=== PATIENT | female | born 1940 | race Caucasian/White ===

== ENCOUNTER 2019-06-10 09:49 | Emergency (ER) | payer OTHER, MEDICARE ==
--- OUTSIDE RECORDS SUMMARY | 2019-06-10 09:52 | XMS REPORT ---
:1940 Author Organization [facility] Address [address] [place] [id number] Care Team Providers Name Role Phone Unavailable Unavailable Unavailable Problems This patient has no known problems. Allergies, Adverse Reactions, Alerts This patient has no known allergies or adverse reactions. Medications This patient has no known medications. Encounters Start End Encounter Admission Attending Care Care Encounter Date/Time Date/Time Type Type Clinicians Facility Department ID 2019-01-30 2019-01-30 Outpatient [facility] [id number] 09:30:00 09:30:00
[2019-06-10] MEDS ORDERED: METHYLPREDNISOLONE 125 MG INJ ONE (10:31)
--- NOTE | 2019-06-10 10:34 | ER ---
Nurse's Notes [facility] Name: Mariama Wayne Age: 79 yrs Sex: Female : 1940 Arrival Date: 06/10/2019 Time: 10:01 Bed 18 Private MD: Diagnosis: Rash and other nonspecific skin eruption Presentation: 06/10 10:15 Presenting complaint: Patient states: rash that began on arms and spread to face, aa5 chest, and back since yesterday. Transition of care: patient was not received from another setting of care. Onset of symptoms was May 2019. Risk Assessment: Do you want to hurt yourself or someone else? Patient reports no desire to harm self or others. Care prior to arrival: None. 10:15 Acuity: JAIME 3 aa5 10:15 Method Of Arrival: Wheelchair aa5 10:15 Initial Sepsis Screen: Does the patient meet any 2 criteria? No. Patient's initial ca1 sepsis screen is negative. Does the patient have a suspected source of infection? No. Patient's initial sepsis screen is negative. Historical: - Allergies: 10:15 Erythromycin; aa5 10:15 PENICILLINS; aa5 10:15 Sulfa (Sulfonamide Antibiotics); aa5 10:15 Fish Containing Products; aa5 10:15 Seafood; aa5 - PMHx: 10:15 COPD; High Cholesterol; aa5 - PSHx: 10:15 cataract sx; aa5 - Immunization history:: Adult Immunizations up to date. - Social history:: Smoking status: Patient/guardian denies using tobacco. - Ebola Screening: : Patient negative for fever greater than or equal to 101.5 degrees Fahrenheit, and additional compatible Ebola Virus Disease symptoms Patient denies exposure to infectious person Patient denies travel to an Ebola-affected area in the 21 days before illness onset No symptoms or risks identified at this time. Screenin:10 Abuse screen: Denies threats or abuse. Denies injuries from another. Nutritional ca1 screening: No deficits noted. Tuberculosis screening: No symptoms or risk factors identified. Fall Risk Ambulatory Aid- Crutches/Cane/Walker (15 pts). Assessment: 10:05 General: Appears in no apparent distress. comfortable, Behavior is calm, cooperative, ca1 appropriate for age. Pain: Denies pain. Neuro: Level of Consciousness is awake, alert, obeys commands, Oriented to person, place, time, situation. Cardiovascular: Heart tones S1 S2 Capillary refill < 3 seconds Patient's skin is warm and dry. Respiratory: Airway is patent Respiratory effort is even, unlabored, Respiratory pattern is regular, symmetrical, Breath sounds are clear bilaterally. GI: Abdomen is round non-distended, Bowel sounds present X 4 quads. Abd is soft and non tender X 4 quads. : No deficits noted. No signs and/or symptoms were reported regarding the genitourinary system. EENT: No deficits noted. No signs and/or symptoms were reported regarding the EENT system. Derm: Skin is intact, is healthy with good turgor, Skin is pink, warm \T\ dry. Rash noted that is red, raised, on head and left arm and right arm and abdomen and chest and back. Musculoskeletal: Circulation, motion, and sensation intact. Capillary refill < 3 seconds, Range of motion: intact in all extremities. Vital Signs: 10:05 BP 151 / 74; Pulse 107; Resp 22 S; Temp 98.3(O); Pulse Ox 93% on 3 lpm NC; aa5 ED Course: 10:01 Patient arrived in ED. rg4 10:03 Arm band placed on Patient placed in an exam room, on a stretcher. aa5 10:05 Clem Craven, RN is Primary Nurse. la1 10:10 Patient has correct armband on for positive identification. Bed in low position. Call ca1 light in reach. Side rails up X 1. Pulse ox on. NIBP on. 10:10 No provider procedures requiring assistance completed. Patient did not have IV access ca1 during this emergency room visit. 10:16 Triage completed. aa5 10:17 Meg Miller FNP-C [facility]. kb 10:17 Dennis Woods MD is Attending Physician. kb Administered Medications: 10:34 Drug: SOLU-Medrol 125 mg Route: IM; Site: left gluteus; ca1 Outcome: 10:33 Discharge ordered by . kb 10:48 Discharged to home via wheelchair, with family. ca1 10:48 Condition: stable 10:48 Discharge instructions given to patient, Instructed on discharge instructions, follow up and referral plans. medication usage, Demonstrated understanding of instructions, follow-up care, medications, Prescriptions given X 1. 10:49 Patient left the ED. ca1 Signatures: Meg Miller, ARVIND-C REPORTING SPECIALIST-Svetlana Alonzo, RN RN aa5 Clem Craven RN RN la1 Claudia Patterson4 Lotus Contreras RN RN ca1 Corrections: (The following items were deleted from the chart) 10:14 10:10 BP 151 / 74; Pulse 107bpm; Resp 22bpm; Spontaneous; Pulse Ox 93% 3 lpm Nasal aa5 Cannula; Temp 98.3F Oral; aa5
--- NOTE | 2019-06-10 10:34 | EDPHYS ---
Physician Documentation [facility] Name: Mariama Wayne Age: 79 yrs Sex: Female : 1940 Arrival Date: 06/10/2019 Time: 10:01 Bed 18 Private MD: ED Physician Dennis Woods HPI: 06/10 10:29 This 79 yrs old Female presents to ER via Wheelchair with complaints of Rash. kb 10:29 The patient's rash thought to be caused by an unknown cause. The rash is located on the kb back, chest, abdomen, right arm and left arm. The rash can be described as macular, urticarial. Onset: The symptoms/episode began/occurred yesterday. Associated signs and symptoms: Pertinent positives: itching, Pertinent negatives: burning sensation, difficulty breathing, fever, nausea, Pain swelling of lips, swelling of throat, swelling of tongue, vomiting, wheezing. Severity of symptoms: At their worst the symptoms were moderate in the emergency department the symptoms are unchanged. Treatment given at home: Benadryl. The patient has not experienced similar symptoms in the past. The patient has not recently seen a physician. Pt reports she started developing a rash yesterday to bilateral arms and it has spread to trunk. States she started a new all natural medication for leg cramps 5 days ago. Reports itching, but has been taking benadryl every 4 hours and it is helping. . Historical: - Allergies: 10:15 Erythromycin; aa5 10:15 PENICILLINS; aa5 10:15 Sulfa (Sulfonamide Antibiotics); aa5 10:15 Fish Containing Products; aa5 10:15 Seafood; aa5 - PMHx: 10:15 COPD; High Cholesterol; aa5 - PSHx: 10:15 cataract sx; aa5 - Immunization history:: Adult Immunizations up to date. - Social history:: Smoking status: Patient/guardian denies using tobacco. - Ebola Screening: : Patient negative for fever greater than or equal to 101.5 degrees Fahrenheit, and additional compatible Ebola Virus Disease symptoms Patient denies exposure to infectious person Patient denies travel to an Ebola-affected area in the 21 days before illness onset No symptoms or risks identified at this time. ROS: 10:29 Constitutional: Negative for fever, chills, and weight loss, ENT: Negative for injury, kb pain, and discharge, Neck: Negative for injury, pain, and swelling, Cardiovascular: Negative for chest pain, palpitations, and edema, Respiratory: Negative for shortness of breath, cough, wheezing, and pleuritic chest pain, Abdomen/GI: Negative for abdominal pain, nausea, vomiting, diarrhea, and constipation, Back: Negative for injury and pain, MS/Extremity: Negative for injury and deformity, Neuro: Negative for headache, weakness, numbness, tingling, and seizure. 10:29 Skin: Positive for rash, of the left arm and right arm and abdomen and chest and back. Exam: 10:29 Constitutional: This is a well developed, well nourished patient who is awake, alert, kb and in no acute distress. Head/Face: Normocephalic, atraumatic. Neck: Trachea midline, no thyromegaly or masses palpated, and no cervical lymphadenopathy. Supple, full range of motion without nuchal rigidity, or vertebral point tenderness. No Meningismus. Chest/axilla: Normal chest wall appearance and motion. Nontender with no deformity. No lesions are appreciated. Cardiovascular: Regular rate and rhythm with a normal S1 and S2. No gallops, murmurs, or rubs. Normal PMI, no JVD. No pulse deficits. Respiratory: Lungs have equal breath sounds bilaterally, clear to auscultation and percussion. No rales, rhonchi or wheezes noted. No increased work of breathing, no retractions or nasal flaring. Abdomen/GI: Soft, non-tender, with normal bowel sounds. No distension or tympany. No guarding or rebound. No evidence of tenderness throughout. Back: No spinal tenderness. No costovertebral tenderness. Full range of motion. MS/ Extremity: Pulses equal, no cyanosis. Neurovascular intact. Full, normal range of motion. Neuro: Awake and alert, GCS 15, oriented to person, place, time, and situation. Cranial nerves II-XII grossly intact. Motor strength 5/5 in all extremities. Sensory grossly intact. Cerebellar exam normal. Normal gait. 10:29 Skin: rash a moderate rash is noted, consistent with urticaria. Vital Signs: 10:05 BP 151 / 74; Pulse 107; Resp 22 S; Temp 98.3(O); Pulse Ox 93% on 3 lpm NC; aa5 MDM: 10:17 Patient medically screened. kb 10:28 Data reviewed: vital signs, nurses notes. Data interpreted: Pulse oximetry: on room air kb is 93 %. Interpretation: acceptable. Counseling: I had a detailed discussion with the patient and/or guardian regarding: the historical points, exam findings, and any diagnostic results supporting the discharge/admit diagnosis, the need for outpatient follow up, a family practitioner, to return to the emergency department if symptoms worsen or persist or if there are any questions or concerns that arise at home. Administered Medications: 10:34 Drug: SOLU-Medrol 125 mg Route: IM; Site: left gluteus; ca1 Disposition: 11:43 Co-signature as Attending Physician, Dennis Woods MD I agree with the assessment and kdr plan of care. Disposition: 06/10/19 10:33 Discharged to Home. Impression: Rash and other nonspecific skin eruption. - Condition is Stable. - Discharge Instructions: Rash, [id number], Allergies, [id number]. - Prescriptions for Prednisone 20 mg Oral Tablet - take 1 tablet by ORAL route every 12 hours for 5 days; 10 tablet. - Medication Reconciliation Form, Thank You Letter, Antibiotic Education, Prescription Opioid Use form. - Follow up: Emergency Department; When: As needed; Reason: Worsening of condition. Follow up: Private Physician; When: 2 - 3 days; Reason: Recheck today's complaints, Continuance of care, Re-evaluation by your physician. Signatures: Meg Miller, ESCROW REPRESENTATIVE-C ESCROW REPRESENTATIVE-Ckb Dennis Woods MD MD [facility] Svetlana Silva RN RN aa5 Lotus Contreras RN RN ca1 Corrections: (The following items were deleted from the chart) 10:49 10:33 06/10/2019 10:33 Discharged to Home. Impression: Rash and other nonspecific skin ca1 eruption. Condition is Stable. Forms are Medication Reconciliation Form, Thank You Letter, Antibiotic Education, Prescription Opioid Use. Follow up: Emergency Department; When: As needed; Reason: Worsening of condition. Follow up: Private Physician; When: 2 - 3 days; Reason: Recheck today's complaints, Continuance of care, Re-evaluation by your physician. kb
[2019-06-10 11:08] VITALS: BP 151/74; TEMP 98.3; O2SAT 93
== END 2019-06-10 10:49 | disposition home or self-care (01) ==
LOC: ER 09:49
DX: R21 Rash and other nonspecific skin eruption (principal); Z88.0 Allergy status to penicillin; Z88.2 Allergy status to sulfonamides; Z88.3 Allergy status to other anti-infective agents; Z91.013 Allergy to seafood
CPT/HCPCS: 96372; 99283; J2930

== ENCOUNTER 2019-06-22 08:35 | Emergency (ER) | payer OTHER, MEDICARE ==
[2019-06-22] MEDS ORDERED: METHYLPREDNISOLONE 125 MG INJ ONE (09:01)
[2019-06-22] MEDS ORDERED: LEVALBUTEROL 1.25 MG/3 ML NEB ONE (09:01)
[2019-06-22] MEDS ORDERED: NA CHLORIDE 0.9% 500 ML ONE (09:01)
--- OUTSIDE RECORDS SUMMARY | 2019-06-22 09:16 | XMS REPORT ---
:1940 [facility] Address [address] [place] [address] [address] [place] [id number] Care Team Providers Name Role Phone Unavailable Unavailable Unavailable Problems This patient has no known problems. Allergies, Adverse Reactions, Alerts This patient has no known allergies or adverse reactions. Medications This patient has no known medications. Encounters Start End Encounter Admission Attending Care Care Encounter Date/Time Date/Time Type Type Clinicians Facility Department ID 2019-01-30 2019-01-30 Outpatient [facility] [id number] 09:30:00 09:30:00
[2019-06-22 09:35] LABS: Absolute Lymphocytes (CBC) 0.6 K/uL (0.7-4.9); Basophils % 0.4 % (0-1.3); Hematocrit 37.1 % (36.0-45.0); Lymphocytes % 4.4 % (15.3-44.8); MPV 6.6 fL (7.6-11.3); RBC Red Blood Cell Count 4.27 M/uL (3.86-4.86)
[2019-06-22 09:48] LABS: BUN Blood Urea Nitrogen 10 mg/dL (7-18); Bicarbonate 32 mmol/L (21-32); Glucose Level 174 mg/dL (74-106); NT PRO-BNP 223 pg/mL (<450); Potassium 4.3 mmol/L (3.5-5.1); Sodium Level 136 mmol/L (136-145); Troponin (Emerg Dept Use Only) < 0.02 ng/mL (0.0-0.045)
[2019-06-22 10:29] LABS: Blood Morphology Comment NOT SEEN (NOT SEEN); Platelet Estimate ADEQ
--- NOTE | 2019-06-22 11:51 | RAD REPORT ---
EXAM DESCRIPTION: Loly Single View06/22/2019 9:37 am CLINICAL HISTORY: Shortness of breath COMPARISON: 2017 FINDINGS: The lungs appear clear of acute infiltrate. The heart is normal size IMPRESSION: No acute abnormalities displayed
--- NOTE | 2019-06-22 12:11 | ER ---
Nurse's Notes [facility] Name: Mariama Wayne Age: 79 yrs Sex: Female : 1940 Arrival Date: 06/22/2019 Time: 08:36 Bed 8 Private MD: Diagnosis: Chronic obstructive pulmonary disease with (acute) exacerbation Presentation: 06/22 08:40 Presenting complaint: Patient states: shortness of breath x 2 weeks on exertion. Pt has ss a history of COPD. PCP recently placed patient on spironolactone, but patient reports it has not helped. 08:56 Transition of care: patient was not received from another setting of care. Onset of ss symptoms was June 08, 2019. Risk Assessment: Do you want to hurt yourself or someone else? Patient reports no desire to harm self or others. Initial Sepsis Screen: Does the patient meet any 2 criteria? RR > 20 per min. HR > 90 bpm. Does the patient have a suspected source of infection? No. Patient's initial sepsis screen is negative. If YES to both, name of provider notified: Oneal Gómez MD. Care prior to arrival: None. 08:56 Method Of Arrival: Wheelchair ss 08:56 Acuity: JAIME 3 ss Historical: - Allergies: 09:16 Erythromycin; ss 09:16 PENICILLINS; ss 09:16 SEAFOOD; ss 09:16 Sulfa (Sulfonamide Antibiotics); ss 09:16 Fish Containing Products; ss - PMHx: 09:16 COPD; High Cholesterol; ss - PSHx: 09:16 cataract sx; ss - Immunization history:: Adult Immunizations up to date. - Social history:: Smoking status: Patient/guardian denies using tobacco, but has a distant history of tobacco abuse. - Family history:: not pertinent. - Ebola Screening: : Patient denies exposure to infectious person Patient denies travel to an Ebola-affected area in the 21 days before illness onset. - Hospitalizations: : No recent hospitalization is reported. Screenin:19 Abuse screen: Denies threats or abuse. Denies injuries from another. Nutritional hb screening: No deficits noted. Tuberculosis screening: No symptoms or risk factors identified. Fall Risk None identified. Assessment: 09:10 General: Appears in no apparent distress. Behavior is calm, cooperative. Pain: Denies hb pain. Neuro: Level of Consciousness is awake, alert, obeys commands, Oriented to person, place, time, situation. Cardiovascular: Capillary refill < 3 seconds Patient's skin is warm and dry. Respiratory: Reports shortness of breath on exertion Airway is patent Respiratory effort is even, unlabored, Respiratory pattern is regular, symmetrical, Breath sounds are diminished bilaterally. Breath sounds with wheezes bilaterally. Denies cough. GI: No signs and/or symptoms were reported involving the gastrointestinal system. : No signs and/or symptoms were reported regarding the genitourinary system. EENT: No signs and/or symptoms were reported regarding the EENT system. Derm: Skin is intact, is healthy with good turgor, Skin is pink, warm \T\ dry. Musculoskeletal: No signs and/or symptoms reported regarding the musculoskeletal system. 10:00 Reassessment: Patient appears in no apparent distress at this time. Patient and/or hb family updated on plan of care and expected duration. Pain level reassessed. Patient is alert, oriented x 3, equal unlabored respirations, skin warm/dry/pink. 11:00 Reassessment: Patient appears in no apparent distress at this time. No changes from hb previously documented assessment. Patient and/or family updated on plan of care and expected duration. Pain level reassessed. Vital Signs: 08:54 BP 135 / 79; Pulse 103; Resp 23; Temp 97.8; Pulse Ox 94% on 2.5 lpm NC; Weight 92.99 ss kg; Height 5 ft. 8 in. (172.72 cm); Pain 0/10; 09:45 BP 132 / 78; Pulse 102; Resp 21; Pulse Ox 94% on 3 lpm NC; Pain 0/10; hb 10:45 BP 159 / 86; Pulse 107; Resp 17; Pulse Ox 93% on 3 lpm NC; Pain 0/10; hb 08:54 Body Mass Index 31.17 (92.99 kg, 172.72 cm) ss 08:54 Pt reports she Is on continuous home O2 at 2.5 L/min ED Course: 08:36 Patient arrived in ED. as 08:42 Oneal Gómez MD is Attending Physician. rn 08:54 Arm band placed on right wrist. ss 09:07 EKG done, by design engineering technician. reviewed by Oneal Gómez MD. tc 09:15 Triage completed. ss 09:15 Inserted saline lock: 22 gauge in right forearm, using aseptic technique. Blood hb collected. 09:19 Patient has correct armband on for positive identification. Bed in low position. Call hb light in reach. Side rails up X 1. laboratory monitor on. Pulse ox on. NIBP on. 09:36 XRAY CXR (1 view) In Process Unspecified. EDMS 09:55 Sunitha Tillman, RN is Primary Nurse. hb Administered Medications: 09:18 Drug: NS 0.9% 500 ml Route: IV; Rate: bolus; Site: right forearm; hb 09:19 Drug: SOLU-Medrol 125 mg Route: IVP; Site: right forearm; hb 09:56 Follow up: Response: No adverse reaction hb 09:19 Drug: Xopenex (3) 1.25 mg Route: Inhalation; hb 09:56 Follow up: Response: No adverse reaction hb 12:33 Drug: LevaQUIN 500 mg Route: PO; hb 12:35 Follow up: Response: Medication administered at discharge. hb Outcome: 12:10 Discharge ordered by . rn 12:58 Patient left the ED. hb Signatures: Dispatcher [employer] EDPR Karmen Hall Roman, MD MD rn Smirch, Shelby, RN RN Kanchan Basilio, coal digger EKG Ttc Sunitha Tillman, RN RN hb
--- NOTE | 2019-06-22 12:11 | EDPHYS ---
Physician Documentation [facility] Name: Mariama Wayne Age: 79 yrs Sex: Female : 1940 Arrival Date: 06/22/2019 Time: 08:36 Bed 8 Private MD: ED Physician Oneal Gómez HPI: 06/22 09:12 This 79 yrs old Female presents to ER via Unassigned with complaints of COPD rn Exacerbation. 09:12 The patient has shortness of breath at rest, with light activity. Onset: The rn symptoms/episode began/occurred 1 week(s) ago. Duration: The symptoms are intermittent. The patient's shortness of breath is aggravated by exertion, is alleviated by nothing. Severity of symptoms: At their worst the symptoms were moderate in the emergency department the symptoms are unchanged. The patient has experienced similar episodes in the past. Reports increased sob for 1 week, seen 2 weeks ago for allergic reaction and slowly worsening since then. No fever. No change in mucous. No chest pain. Has increased oxygen at home from normal 2.5 L to 3 L. Reports inhaler helps briefly. . Historical: - Allergies: 09:16 Erythromycin; ss 09:16 PENICILLINS; ss 09:16 SEAFOOD; ss 09:16 Sulfa (Sulfonamide Antibiotics); ss 09:16 Fish Containing Products; ss - PMHx: 09:16 COPD; High Cholesterol; ss - PSHx: 09:16 cataract sx; ss - Immunization history:: Adult Immunizations up to date. - Social history:: Smoking status: Patient/guardian denies using tobacco, but has a distant history of tobacco abuse. - Family history:: not pertinent. - Ebola Screening: : Patient denies exposure to infectious person Patient denies travel to an Ebola-affected area in the 21 days before illness onset. - Hospitalizations: : No recent hospitalization is reported. ROS: 09:12 Constitutional: Negative for fever, chills, and weight loss, Eyes: Negative for injury, rn pain, redness, and discharge, Neck: Negative for injury, pain, and swelling, Cardiovascular: Negative for chest pain, palpitations, and edema, Respiratory: + sob and cough Abdomen/GI: Negative for abdominal pain, nausea, vomiting, diarrhea, and constipation, MS/Extremity: Negative for injury and deformity, Skin: Negative for injury, rash, and discoloration, Neuro: Negative for headache, numbness, tingling, and seizure. Exam: 09:12 Constitutional: This is a well developed, well nourished patient who is awake, alert, rn and in no acute distress. Head/Face: Normocephalic, atraumatic. ENT: dry MM, no stridor or swelling Cardiovascular: Regular rate and rhythm with a normal S1 and S2. No gallops, murmurs, or rubs. Normal PMI, no JVD. No pulse deficits. Respiratory: + diminished bilateral breath sounds, faint exp wheezing Abdomen/GI: soft, non-tender MS/ Extremity: Pulses equal, no cyanosis. Neurovascular intact. Full, normal range of motion. Equal circumference. Neuro: Awake and alert, GCS 15, oriented to person, place, time, and situation. Cranial nerves II-XII grossly intact. Motor strength 5/5 in all extremities. Sensory grossly intact. Vital Signs: 08:54 BP 135 / 79; Pulse 103; Resp 23; Temp 97.8; Pulse Ox 94% on 2.5 lpm NC; Weight 92.99 ss kg; Height 5 ft. 8 in. (172.72 cm); Pain 0/10; 09:45 BP 132 / 78; Pulse 102; Resp 21; Pulse Ox 94% on 3 lpm NC; Pain 0/10; hb 10:45 BP 159 / 86; Pulse 107; Resp 17; Pulse Ox 93% on 3 lpm NC; Pain 0/10; hb 08:54 Body Mass Index 31.17 (92.99 kg, 172.72 cm) ss 08:54 Pt reports she Is on continuous home O2 at 2.5 L/min ss MDM: 08:42 Patient medically screened. rn 12:08 Differential diagnosis: Bronchitis Chronic Obstructive Pulmonary Disease Myocardial rn Infarction pneumonia, Pneumothorax pulmonary edema, reactive airway disease. Differential diagnosis: CHF exacerbation. Data reviewed: vital signs. Data reviewed: nurses notes, lab test result(s), EKG, radiologic studies, plain films, and as a result, I will discharge patient. Test interpretation: by ED physician or midlevel provider: ECG, plain radiologic studies, CXR neg for acute pneumonia/PTX. Counseling: I had a detailed discussion with the patient and/or guardian regarding: the historical points, exam findings, and any diagnostic results supporting the discharge/admit diagnosis, lab results, radiology results, the need for outpatient follow up, to return to the emergency department if symptoms worsen or persist or if there are any questions or concerns that arise at home. Special discussion: I discussed with the patient/guardian in detail that at this point there is no indication for admission to the hospital. It is understood, however, that if the symptoms persist or worsen the patient needs to return immediately for re-evaluation. ED course: Pt improved, states improved, inflammatory markers on bloodwork, but neg flu and CXR, will dc home with abx, states can only take levaquin due to previous reactions, and steroids/inhaler. Return precautions given and understood. . 06/22 08:55 Order name: Blood Culture Adult (2) rn 06/22 08:55 Order name: BMP; Complete Time: 09:53 rn 06/22 08:55 Order name: CBC with Diff rn 06/22 08:55 Order name: NT PRO-BNP; Complete Time: 09:53 rn 06/22 08:55 Order name: Troponin (emerg Dept Use Only); Complete Time: 09:53 rn 06/22 08:55 Order name: Flu; Complete Time: 10:01 rn 06/22 08:55 Order name: XRAY CXR (1 view); Complete Time: 12:03 rn 06/22 08:55 Order name: EKG; Complete Time: 08:56 rn 06/22 08:55 Order name: Cardiac monitoring; Complete Time: 09:19 rn 06/22 10:29 Order name: Manual Differential; Complete Time: 11:05 EDMS 06/22 08:55 Order name: EKG - Nurse/Tech; Complete Time: 09:19 rn 06/22 08:55 Order name: IV Saline Lock; Complete Time: 09:19 rn 06/22 08:55 Order name: Labs collected and sent; Complete Time: 09:19 rn 06/22 08:55 Order name: O2 Per Protocol; Complete Time: 09:19 rn 06/22 08:55 Order name: O2 Sat Monitoring; Complete Time: 09:19 rn Administered Medications: 09:18 Drug: NS 0.9% 500 ml Route: IV; Rate: bolus; Site: right forearm; hb 09:19 Drug: SOLU-Medrol 125 mg Route: IVP; Site: right forearm; hb 09:56 Follow up: Response: No adverse reaction hb 09:19 Drug: Xopenex (3) 1.25 mg Route: Inhalation; hb 09:56 Follow up: Response: No adverse reaction hb 12:33 Drug: LevaQUIN 500 mg Route: PO; hb 12:35 Follow up: Response: Medication administered at discharge. hb Disposition: 06/22/19 12:10 Discharged to Home. Impression: Chronic obstructive pulmonary disease with (acute) exacerbation. - Condition is Stable. - Discharge Instructions: Chronic Bronchitis, How to Use an Inhaler, Chronic Obstructive Pulmonary Disease Exacerbation. - Prescriptions for Levaquin 500 mg Oral Tablet - take 1 tablet by ORAL route once daily for 7 days; 7 tablet. Prednisone 20 mg Oral Tablet - take 3 tablet by ORAL route once daily for 5 days; 15 tablet. Albuterol Sulfate 90 mcg/actuation - inhale 1-2 puff by INHALATION route every 4-6 hours; 1 Inhaler. - Medication Reconciliation Form, Thank You Letter, Antibiotic Education, Prescription Opioid Use form. - Follow up: Private Physician; When: As needed; Reason: Recheck today's complaints, Re-evaluation by your physician. - Problem is new. - Symptoms have improved. Signatures: Dispatcher [employer] EDMS Oneal Gómez MD MD rn Smirch, Shelby, RN RN Sunitha Tillman RN RN Corrections: (The following items were deleted from the chart) 12:58 12:10 06/22/2019 12:10 Discharged to Home. Impression: Chronic obstructive pulmonary hb disease with (acute) exacerbation. Condition is Stable. Forms are Medication Reconciliation Form, Thank You Letter, Antibiotic Education, Prescription Opioid Use. Follow up: Private Physician; When: As needed; Reason: Recheck today's complaints, Re-evaluation by your physician. Problem is new. Symptoms have improved. rn
[2019-06-22] MEDS ORDERED: levoFLOXacin 500 MG TAB ONE (12:30)
--- NOTE | 2019-06-22 13:00 | EKG ---
Test Date: 2019-06-22 Test Time: 09:02:55 Computer Compositor: SAURABH MEASUREMENT RESULTS: Intervals: Rate: 96 PA: 168 QRSD: 68 QT: 326 QTc: 411 [place]: P: 59 PA: 168 QRS: 45 T: 68 INTERPRETIVE STATEMENTS: Normal sinus rhythm Normal ECG Compared to ECG 06/13/2017 09:22:36 Sinus tachycardia no longer present Atrial abnormality no longer present Electronically Signed On 06-22-19 13:00:01 [employer]STRUCTION [employer] HELPER by Maico Julien
[2019-06-22 13:32] VITALS: TEMP 97.8
[2019-06-22 13:43] VITALS: BP 159/86; O2SAT 93
== END 2019-06-22 12:58 | disposition home or self-care (01) ==
LOC: ER 08:35
DX: J44.1 Chronic obstructive pulmonary disease with (acute) exacerbation (principal); Z88.0 Allergy status to penicillin; Z88.2 Allergy status to sulfonamides; Z91.013 Allergy to seafood; Z88.3 Allergy status to other anti-infective agents
CPT/HCPCS: 93005; 87040 ×2; 85025; 80048; 36415; 84484; 83880; 87804 ×2; 71045; 96374; 99285; J7040; J2930

== ENCOUNTER 2020-12-17 08:32 | Inpatient (IN) | payer OTHER, MEDICARE ==
--- OUTSIDE RECORDS SUMMARY | 2020-12-17 08:37 | XMS REPORT | Continuity of Care Document ---
:1940 Author Organization [facility] t Address [address] [place] [address] Care Team Providers Name Role Phone River VILLELA Primary Care Physician ALEKSANDER Attending Clinician Unavailable ANDREW Attending Clinician Unavailable ASHLEY Attending Clinician Unavailable Jennifer Morales Attending Clinician Daryl Chopra Attending Clinician Jennifer Morales Admitting Clinician Jagdeep Nam Admitting Clinician Problems Condition Condition Condition Status Onset Resolution Last Treating Co mments Source Name Details Category Date Date Treatment Clinician Date PAIN DUE Diagnosis Active 2019-02-06 M emoria TO 01-28 22:31:00 l INTERNAL PAIN DUE 00:00: Herm vicente ORTHOPEDIC TO 00 PROSTHET INTERNAL ORTHOPEDIC PROSTHET Active 01/28/2019 [facility] NARCISO Diagnosis Active 2019-01-27 Mem oria HUMERAL 01-10 22:22:00 l FXS,S/P NARCISO 00:00: Gentry FALL HUMERAL 00 FXS,S/P FALL Active 01/10/2019 [facility] FALL Diagnosis Active 2019-01-10 Mem oria - 17:12:00 l FALL 00:00: Esteban 00 Active 01/10/2019 [facility] Rupture Rupture Problem Active [facility] long head long head ity of biceps biceps [place] tendon, tendon, Physici left, left, ans subsequent subsequent encounter encounter 3-part 3-part Problem Active [facility] fracture fracture ity of of of [place] surgical surgical Physic i neck of neck of ans left left humerus humerus with with routine routine healing healing Other Other Problem Active [facility] closed closed ity of displaced displaced [place] fracture fracture Physic i of of ans proximal proximal end of end of right right humerus humerus with with routine routine healing, healing, subsequent subsequent encounter encounter Displaceme Displaceme Problem Active U nivers nt of nt of ity of internal internal [place] fixation fixation Physic i device of device of ans left left humerus, humerus, subsequent subsequent encounter encounter Accidental Problem Active 2019-02-01 M emoria fall 22:47:24 l (finding) Gentry Accidental fall (finding) Active Problem 02/01/2019 NARCISO HUMERUS FX (R NON-OP); NON-OP NASAL FX [facility] Chronic Problem Active 2019-02-01 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 (disorder) Active Problem 02/01/2019 ON O2 2 L; SOB OFTEN [facility] Hyperlipid Problem Active 2019-02-01 M emoria emia 22:47:24 l (disorder) Steven n Hyperlipid emia (disorder) Active Problem 02/01/2019 [facility] Hypertensi Problem Active 2019-02-01 M emoria ve 22:47:24 l disorder, Gentry systemic Hypertensi arterial ve (disorder) disorder, systemic arterial (disorder) Active Problem 02/01/2019 [facility] Obstructiv Problem Active 2019-02-01 M emoria e sleep 22:47:24 l apnea Esteban syndrome Obstructiv (disorder) e sleep apnea syndrome (disorder) Active Problem 02/01/2019 [facility] Pulmonary Problem Active 2019-02-01 Me moria emphysema 22:47:24 l (disorder) Steven n Pulmonary emphysema (disorder) Active Problem 02/01/2019 [facility] Spasm Problem Active 2019-02-01 Memor ia (finding) 22:47:24 l Spasm Gentry (finding) Active Problem 02/01/2019 [facility] UNSP Diagnosis Active 2019-01-27 Mem oria FRACTURE 22:22:00 l OF SHAFT UNSP Gentry OF FRACTURE HUMERUS, OF SHAFT RIGHT OF HUMERUS, RIGHT Active [facility] ESSENTIAL Diagnosis Active 2019-01-14 Memoria (PRIMARY) 01:49:00 l HYPERTENSI Steven n ON ESSENTIAL (PRIMARY) HYPERTENSI ON Active [facility] OTHER Diagnosis Active 2019-01-14 Mem oria HYPERLIPID 01:49:00 l EMIA OTHER Esteban HYPERLIPID EMIA Active [facility] OTHER Diagnosis Active 2019-01-14 Mem oria SPECIFIED 01:49:00 l DIABETES OTHER Gentry MELLITUS SPECIFIED WITHOU DIABETES MELLITUS WITHOU Active [facility] UNSPECIFIE Diagnosis Active 2019-01-14 Memoria D 01:49:00 l OSTEOARTHR Steven n ITIS, UNSPECIFIE UNSPECIFIE D D OSTEOARTHR ITIS, UNSPECIFIE D Active [facility] IRON Diagnosis Active 2019-01-14 Mem oria DEFICIENCY 01:49:00 l IRON Gentry DEFICIENCY Active [facility] AUTOIMMUNE Diagnosis Active 2019-01-14 Memoria THYROIDITI 01:49:00 l S Gentry AUTOIMMUNE THYROIDITI S Active [facility] Unspecifie Problem 2019-01-22 M emoria d fracture 21:39:51 l of shaft Gentry of Unspecifie humerus, d fracture right arm, of shaft initial of encounter humerus, for closed right arm, fracture initial encounter for closed fracture 01/22/2019 [facility] Allergies, Adverse Reactions, Alerts Allergy Allergy Status Severity Reaction(s) Onset Inactive Treating Comm ents Source Name Type Date Date Clinician penicill penicill Active Memori a ins ins l Esteban sulfa sulfa Active Memoria drugs drugs l Esteban erythrom erythrom Active Memori a ycin ycin l Esteban Food Food Active Memoria Seafood Seafood l Gentry Family History Family Member Diagnosis Comments Start Date Stop Date Source Natural father Heart attack Kenny Herndon Natural sister Heart attack Kenny Herndon Social History Social Habit Start Date Stop Date Quantity Comments Source Alcohol intake 2019-09-17 2019-09-17 [facility] 00:00:00 00:00:00 non-drinker (finding) Tobacco Comment 2019-09-17 2019-09-17 heaviest use Kenny Herndon 00:00:00 00:00:00 about 1/2 pack per day regulars; got to just 2-3 lights before quitting Cigarettes smoked 2019-09-17 2019-09-17 Kenny Herndon current (pack per 00:00:00 00:00:00 day) - Reported Cigarette 2019-09-17 2019-09-17 Kenny Muñoz ist pack-years 00:00:00 00:00:00 Tobacco use and 2019-09-17 2019-09-17 Never used Kenny baileyodist exposure 00:00:00 00:00:00 Social History 2019-01-30 2019-01-30 Bethanie pastor 15:25:02 15:25:02 History of tobacco 1961-07-15 2004-07-15 Current smoker Al[facility] cor[facility] use 00:00:00 00:00:00 [birth year] F Kenny mccormack 00:00:00 00:00:00 Smoking Status Start Date Stop Date Source Former smoker 2019-09-17 00:00:00 2019-09-17 00:00:00 Kenny Herndon Medications Ordered Filled Start Stop Current Ordering Indication Dosage Frequency Signature Comments Components Source Medication Medication Date Date Medication? Clinician (SIG) Name Name albuterol Yes USE 1 VIAL Alcon corona (ACCUNEB) 2-05 IN [facility] 2.5 mg /3 00:00: NEBULIZER st mL (0.083 00 THREE %) TIMES nebulizer DAILY solution NEEDED acetaminoph 2018-07 Yes Lydia spangler en 0-16 [facility] (ACETAMINOP 00:00: st HEN PAIN 00 RELIEF) 500 MG tablet albuterol 2018-07 Yes 4{puff} Take 4 Marita ston (PROAIR 0-16 puffs by [facility] HFA) 90 00:00: mouth. st mcg/actuati 00 on inhaler albuterol 2018-07 Yes Kenny (ACCUNEB) 0-16 [facility] 2.5 mg /3 00:00: st mL (0.083 00 %) nebulizer solution aspirin-carloz 2018-07 Yes Lydia spangler taminophen- 0-16 [facility] caffeine 00:00: st (EXCEDRIN 00 EXTRA STRENGTH) 250-250-65 mg per tablet cholecalcif 2018-07 Yes Lydia spangler ladonna, 0-16 [facility] vitamin D3, 00:00: st (VITAMIN 00 D3) 10 mcg (400 unit) capsule Acetaminoph Yes 1 - 2 tab, Memoria en 300 MG / 7-19 PO, Q6H, l Codeine 19:42: PRN Pain, Monika nn Phosphate 00 X 4 day, # 30 MG Oral 32 tab, 0 Tablet Refill(s) [Tylenol with Codeine #3] neostigmine No Route: IV, Memoria (ANES) 01-30 Drug form: l 19:12: INJ, ONCE, Gentry 00 Stop date: 01/30/19 14:12:00 CDT glycopyrrol No Route: IV, Memoria ate (ANES) 01-30 Drug form: l 19:12: INJ, ONCE, Stop date: 01/30/19 14:12:00 CDT ondansetron No Route: IV, Memoria (ANES) 01-30 Drug form: l 19:03: INJ, ONCE, Stop date: 01/30/19 14:03:00 CDT Ondansetron No Notes: Francisco carmen 01-30 (Same as: l 18:35: Zofran) MEDICATION WASTE Product Size: 4 mg Product Wasted: ___ mg Flumazenil No Notes: Memor ia 01-30 (Same as: l 18:35: Romazicon) Hydromorpho No Notes: Francicso carmen ne 01-30 Same as l 18:35: Dilaudid Naloxone No Notes: Memoria 01-30 Same as l 18:35: Narcan Oxycodone No Notes: Memori a Hydrochlori 01-30 (Same as: l de 5 MG 18:35: Roxicodone Herm vicente Oral Tablet ) Acetaminoph No Notes: Max Memoria en 01-30 acetaminop l 18:35: hen 4000 Gentry 00 mg/day (4 gm/day). (Same as: Tylenol Extra Strength) Hydralazine No Notes: Francisco carmen 01-30 (Same as: l 18:35: Apresoline ) Push over 5 minutes Labetalol No 10 mg, 2 Francisco carmen - mL, Route: l 18:35: IVP, Drug form: INJ, Q5Min, Dosing Weight 99.091, kg, PRN Elevated BP, Start date: 01/30/19 13:35:00 CDT, Duration: 5 doses or times, Stop date: 01/31/19 0:00:00 CDT, 0 fentaNYL 2019-0 No Route: IV, Mem oria (ANES) 01-30 Drug form: l 18:22: INJ, ONCE, Stop date: 01/30/19 13:22:00 CDT phenylephri 2018-0 No Route: IV, Memoria ne (ANES) 01-30 Drug form: l 18:22: INJ, ONCE, Stop date: 01/30/19 13:22:00 CDT propofol 2018-0 No Route: IV, Mem oria (ANES) 01-30 Drug form: l 18:22: INJ, ONCE, Stop date: 01/30/19 13:22:00 CDT rocuronium 2018-0 No Route: IV, M emoria (ANES) 01-30 Drug form: l 18:22: INJ, ONCE, Stop date: 01/30/19 13:22:00 CDT midazolam 2019-0 No Route: IV, Me moria (ANES) 01-30 Drug form: l 18:22: SOLN, ONCE, Stop date: 01/30/19 13:22:00 CDT lidocaine 2018-0 No Route: IV, Me moria (ANES) 01-30 Drug form: l 18:22: INJ, ONCE, Stop date: 01/30/19 13:22:00 CDT ceFAZolin 2018-0 No Route: IV, Me moria (ANES) 01-30 Drug form: l 18:06: INJ, ONCE, Stop date: 01/30/19 13:06:00 CDT Lactated 2018-0 No Route: IV, Mem oria Ringers 01-30 Total l Injection 17:15: Volume: Monika nn IV (ANES) 00 1,000, 1000 mL Start date: 01/30/19 12:15:00 CDT, Stop date: 01/30/19 13:15:00 CDT Loratadine 2019-0 Yes 10 mg = 1 Me moria 10 MG Oral -18 tab, PO, l Tablet 16:30: Daily, # 7 Monika nn [Claritin] 00 tab, 0 Refill(s) 60 ACTUAT Yes = 2 puff, Mem oria tiotropium 7-18 INHALATION l 0.0025 16:28: , Daily, 0 Monika nn MG/ACTUAT 00 Refill(s) Metered Dose Inhaler [Spiriva] Acetaminoph No 325 mg = 1 Memoria en 325 MG 7-18 cap, PO, l Oral 16:26: PRN, 0 Gentry Capsule 00 Refill(s) [Tylenol] Famotidine Yes 20 mg = 1 Me moria 20 MG Oral 7-18 tab, PO, l Tablet 16:24: BID, # 60 Steven n [Pepcid] 00 tab, 0 Refill(s) Acetaminoph No 1 - 2 tab, Memoria en 300 MG / 09 PO, Q4H, l Codeine 14:48: PRN Pain, Monika nn Phosphate 00 X 2 day, # 30 MG Oral 20 tab, 0 Tablet Refill(s), [Tylenol other with Codeine #3] tizanidine Yes 2 mg = 1 Mem oria 2 mg oral -09 tab, PO, l tablet 13:45: Q6H, PRN Esteban 00 Muscle Spasms, 0 Refill(s) Oxycodone No 10 mg = 2 Mem oria Hydrochlori -09 tab, PO, l de 5 MG 13:45: Q4H, PRN Steven n Oral Tablet 00 Pain Score 7-10, 0 Refill(s) melatonin 3 Yes 3 mg = 1 Me moria mg oral -09 tab, PO, l tablet 13:45: Bedtime, Gentry 00 PRN Insomnia, 0 Refill(s) Lidocaine Yes 2 patch, Francisco carmen 0.05 MG/MG 01-20 TOP, QPM, l Transdermal 13:45: Remove Herm vicente Patch 00 after 12 hours, 0 Refill(s) enoxaparin Yes 40 mg = Francisco carmen 40 mg/0.4 01-20 0.4 mL, l mL 13:45: SUB-Q, Gentry subcutaneou 00 Q24H, 0 s solution Refill(s) lidocaine No Notes: Memori a topical 7-08 Apply only l patch (5% 01:00: once for Herm vicente film) 00 up to 12 hours in a 24-hour period (12 hours on and 12 hours off). (Same as: Lidoderm) "Remove old patch before applicatio n of new patch" remove No Notes: Memoria patch 01-18 Remove l 14:00: patch 12 Gentry 00 hours after applicatio n each day. Lanolin No Notes: Memoria 0.157 MG/MG 01-16 (Same as: l / Menthol 17:03: Calmosepti He rmann 0.0044 00 ne) MG/MG / Petrolatum 0.24 MG/MG / Zinc Oxide 0.206 MG/MG Topical Ointment [Calmosepti ne] Spironolact No Notes: Francisco carmen one 01-15 (Same As: l 14:00: Aldactone) Gentry celecoxib No Notes: Memori a 01-15 NSAID. l 01:00: Please Esteban 00 check indication . Not for seizure. (Same As: CeleBREX) bacitracin- No Notes: Francisco carmen polymyxin B 01-14 (Same As: l topical 22:00: Polysporin Herm vicente ) celecoxib No 200 mg, Memor ia 01-14 Route: PO, l 22:00: Drug form: Esteban 00 CAP, BID, Dosing Weight 98.324, kg, Start date: 01/14/19 17:00:00 CDT, Duration: 30 day, Stop date: 02/13/19 9:00:00 CDT Neosporin No 1 appl, Memor ia 01-14 Route: l 22:00: TOP, BID, Esteban 00 Drug form: OINT, Start date: 01/14/19 17:00:00 CDT, Duration: 30 day, Stop date: 02/13/19 9:00:00 CDT tizanidine No Notes: Memor ia 01-14 (Same As: l 19:44: Zanaflex) Gentry Oxycodone No Notes: Memori a Hydrochlori 01-14 (Same as: l de 5 MG 19:44: Roxicodone Herm vicente Oral Tablet 00 ) Oxycodone No Notes: Memori a Hydrochlori 01-14 (Same as: l de 5 MG 19:43: Roxicodone Herm vicente Oral Tablet ) Ancef No 2 gm, 20 Memoria 7-03 mL, Route: l 04:00: IVP, Drug form: SOLN, Q8H, Dosing Weight 98.182, kg, Start date: 01/13/19 23:00:00 CDT, Duration: 3 doses or times, Stop date: 01/14/19 15:00:00 CDT, ABX Indication : Surgical Prophylaxi s, 0 tiotropium No Notes: Memor ia 01-14 (Same As: l 02:00: Spiriva) sugammadex No Notes: Memor ia 01-14 (Same as: l 00:35: Bridion) Metoprolol No 2.5 mg, Francisco carmen 01-14 Route: l 00:11: IVP, ONCE, Dosing Weight 98.182, kg, PRN Other -See Comment, Start date: 01/13/19 19:11:00 CDT sugammadex No Route: IV, M emoria (ANES) 01-13 Drug form: l 23:36: SOLN, Esteban 00 ONCE, Stop date: 01/13/19 18:36:00 CDT calcium No Route: IV, Francisco carmen chloride 01-13 Drug form: l (ANES) 23:36: INJ, ONCE, Monika nn Stop date: 01/13/19 18:36:00 CDT ePHEDrine No Route: IV, Me moria (ANES) 01-13 Drug form: l 22:12: INJ, ONCE, Esteban 00 Stop date: 01/13/19 17:12:00 CDT glycopyrrol No Route: IV, Memoria ate (ANES) 01-13 Drug form: l 22:12: INJ, ONCE, Gentry 00 Stop date: 01/13/19 17:12:00 CDT albumin No Route: IV, Francisco carmen human 01-13 Drug form: l (ANES) 21:57: INJ, ONCE, Monika nn 00 Stop date: 01/13/19 16:57:00 CDT Oxycodone 2019-0 No 5 mg, Memoria Hydrochlori 01-13 Route: PO, l de 5 MG 21:26: Drug form: Herm vicente Oral Tablet 00 TAB, Q4H, Dosing Weight 98.182, kg, PRN Pain Score 4-6, Start date: 01/13/19 16:26:00 CDT, Duration: 30 day, Stop date: 02/12/19 16:25:00 CDT Ondansetron 2019-0 No 4 mg, Memor ia 01-13 Route: l 21:26: IVP, ONCE, Gentry 00 Dosing Weight 98.182, kg, PRN Nausea & Vomiting, Start date: 01/13/19 16:26:00 CDT Hydromorpho 2019-0 No 0.2 mg, Mem oria ne 01-13 Route: l 21:26: IVP, Esteban 00 Q5Min, Dosing Weight 98.182, kg, PRN Pain Score 7-10, Start date: 01/13/19 16:26:00 CDT, Duration: 4 doses or times, Stop date: Limited # of times Flumazenil 2019-0 No 0.2 mg, Francisco carmen 01-13 Route: l 21:26: IVP, PRN, Esteban 00 Dosing Weight 98.182, kg, PRN Benzodiaze pine Reversal, Initial dose, Start date: 01/13/19 16:26:00 CDT, Duration: 30 day, Stop date: 02/12/19 16:25:00 CDT Naloxone 2019-0 No 0.4 mg, Memori a 01-13 Route: l 21:26: IVP, Gentry 00 Q2MIN, Dosing Weight 98.182, kg, PRN Narcotic Reversal, Start date: 01/13/19 16:26:00 CDT, Duration: 8 doses or times, Stop date: Limited # of times phenylephri 2018-0 No Route: IV, Memoria ne (ANES) 01-13 Drug form: l [id number] 21:17: INJ, Start Steven n microgram 00 date: 01/13/19 16:17:00 CDT, Stop date: 01/13/19 17:17:00 CDT ketAMINE 2019-0 No Route: IV, Mem oria (ANES) 01-13 Drug form: l 21:16: INJ, ONCE, Stop date: 01/13/19 16:16:00 CDT dexamethaso 2018-0 No Route: IV, Memoria ne (ANES) 01-13 Drug form: l 21:11: INJ, ONCE, Stop date: 01/13/19 16:11:00 CDT ceFAZolin 2018-0 No Route: IV, Me moria (ANES) 01-13 Drug form: l 20:56: INJ, ONCE, Stop date: 01/13/19 15:56:00 CDT phenylephri 2018-0 No Route: IV, Memoria ne (ANES) 01-13 Drug form: l 20:56: INJ, ONCE, Stop date: 01/13/19 15:56:00 CDT rocuronium 2018-0 No Route: IV, M emoria (ANES) 01-13 Drug form: l 20:56: INJ, ONCE, Stop date: 01/13/19 15:56:00 CDT midazolam 2019-0 No Route: IV, Me moria (ANES) 01-13 Drug form: l 20:56: SOLN, 00 ONCE, Stop date: 01/13/19 15:56:00 CDT lidocaine 2019-0 No Route: IV, Me moria (ANES) 01-13 Drug form: l 20:56: INJ, ONCE, Stop date: 01/13/19 15:56:00 CDT fentaNYL 2019-0 No Route: IV, Mem oria (ANES) 01-13 Drug form: l 20:56: INJ, ONCE, Stop date: 01/13/19 15:56:00 CDT propofol 2019-0 No Route: IV, Mem oria (ANES) 01-13 Drug form: l 20:50: INJ, ONCE, Stop date: 01/13/19 15:50:00 CDT Lactated 2018-0 No Route: IV, Mem oria Ringers 01-13 Total l Injection 20:00: Volume: Monika nn IV (ANES) 00 500, Start 500 mL date: 01/13/19 15:00:00 CDT, Stop date: 01/13/19 16:00:00 CDT Sodium No Route: IV, Memor ia Chloride 01-13 Drug form: l 0.9% IV 19:30: INJ, Start Herm vicente (ANES) 100 00 date: mL + 01/13/19 dexmedetomi 14:30:00 dine (ANES) CDT, Stop 200 date: microgram 01/13/19 15:30:00 CDT Lactated No Route: IV, Mem oria Ringers 01-13 Total l Injection 19:20: Volume: Monika nn IV (ANES) 00 1,000, 1000 mL Start date: 01/13/19 14:20:00 CDT, Stop date: 01/13/19 15:20:00 CDT Albuterol No Notes: SEE Me moria 0.83 MG/ML 01-12 RT l Inhalant 19:00: DOCUMENTAT Her hernandez Solution 00 ION (Same as: Proventil) Aldactone No Notes: Memori a 01-12 (Same As: l 17:54: Aldactone) Codeine No 30 mg, 1 Memori a 01-12 tab, l 17:35: Route: PO, Drug form: TAB, Q4H, Dosing Weight 98.182, kg, PRN Pain Score 7-10, Start date: 01/12/19 12:35:00 CDT, Duration: 30 day, Stop date: 02/11/19 12:34:00 CDT, 0 ketOROLAC No 4 days. Francisco carmen 15 mg/mL 01-12 l injectable 17:00: Esteban solution 00 Codeine No 30 mg, 1 Memori a 01-12 tab, l 14:59: Route: PO, Drug form: TAB, Q4H, Dosing Weight 98.182, kg, PRN Pain Score 7-10, Start date: 01/12/19 9:59:00 CDT, Duration: 30 day, Stop date: 02/11/19 9:58:00 CDT, 0 Aldactone No Notes: Memori a 01-12 (Same As: l 14:57: Aldactone) tiotropium No Notes: Memor ia 01-12 (Same As: l 14:34: Spiriva) Roflumilast No 500 Memori a 7-01 microgram, l 14:34: 1 tab, Gentry 00 Route: PO, Drug form: TAB, Daily, Dosing Weight 98.182, kg, Priority: NOW, Start date: 01/12/19 9:34:00 CDT, Duration: 30 day, Stop date: 02/11/19 9:00:00 CDT, 0 Albuterol No Notes: SEE Me moria 0.83 MG/ML 01-12 RT l Inhalant 14:34: DOCUMENTAT Her hernandez Solution 00 ION (Same as: Proventil) roflumilast Yes 500 Memori a 500 mcg 7- microgram l oral tablet 14:33: = 1 tab, He rmann 00 PO, Daily, 0 Refill(s) remove No Notes: Memoria patch 01-12 Remove l 04:00: patch 12 Gentry 00 hours after applicatio n each day. Ventolin Yes 2 puff, Memori a HFA 90 01-12 INHALER, l mcg/inh 02:11: Q4H, PRN Steven n inhalation 00 wheezing, aerosol coughing, with or adapter shortness of breath, # 8 gm, 1 Refill(s) gabapentin No Notes: Memor ia 01-12 (Same as: l 02:00: Neurontin) Aldactone No Notes: Memori a 6-30 (Same As: l 22:00: Aldactone) Lidocaine No Notes: Memori a Hydrochlori 6-30 Apply only l de 0.05 16:00: once for Steven n MG/MG 00 up to 12 Transdermal hours in a Patch 24-hour [Lidoderm] period (12 hours on and 12 hours off). (Same as: Lidoderm) "Remove old patch before applicatio n of new patch" Aldactone No Notes: Memori a 6-30 (Same As: l 14:00: Aldactone) Prednisone No Notes: Memor ia 6-30 (Same as: l 14:00: PredniSONE ) Take with food. Miralax No Notes: Memoria 6-30 Dissolve l 14:00: in 8 oz of water or juice. (Same as: Miralax) Tramadol 2018- No Notes: Not Mem oria 6-30 to exceed l 12:46: 400mg/day. Gentry (Same As: Ultram) Codeine 2018- No 30 mg, 1 Memori a 6-30 tab, l 12:46: Route: PO, Esteban Drug form: TAB, Q6H, Dosing Weight 98.182, kg, PRN Pain Score 7-10, Start date: 01/11/19 7:46:00 CDT, Duration: 30 day, Stop date: 02/10/19 7:45:00 CDT, 0 Simvastatin No Notes: Francisco carmen 6-30 (Same as: l 02:00: Zocor) 120 ACTUAT 0 No 440 Memoria Fluticasone 6-30 microgram, l propionate 02:00: Route: Monika nn 0.22 00 INHALATION MG/ACTUAT , Drug Metered Form: Dose AERO/A, Inhaler Dosing [Flovent] Weight 109.091, kg, Q12H, Start date: 01/10/19 21:00:00 CDT, Duration: 30 day, Stop date: 02/09/19 9:00:00 CDT famotidine 2018- No Notes: Memor ia 6-30 (Same as: l 02:00: Pepcid) Pulmicort No Notes: Memori a Respules 6-30 (Same As: l 01:39: Pulmicort) Nasal No Notes: Memoria Saline 6-29 (Same as: l 0.65% 23:00: [place], Esteban solution Deep Sea Nasal [place]). Ranitidine 0 No 150 mg, 1 Me moria 150 MG Oral 6-29 tab, l Tablet 22:00: Route: PO, Monika nn 00 Drug form: TAB, BID, Dosing Weight 109.091, kg, Start date: 01/10/19 17:00:00 CDT, Duration: 30 day, Stop date: 02/09/19 9:00:00 CDT predniSONE 2018-0 Yes 10 mg = 1 Me moria 10 mg oral 6-29 tab, PO, l tablet 21:51: Daily, 0 Esteban 00 Refill(s) gabapentin No Notes: Memor ia 01-10 (Same as: l 20:00: Neurontin) Gentry 00 Acetaminoph No Notes: Max Memoria en - acetaminop l 20:00: hen 4000 Gentry 00 mg/day (4 gm/day). (Same as: Tylenol Extra Strength) Morphine No Notes: Memoria - (Same l 19:28: as:MORPhin Esteban 00 e Sulfate) Oxycodone No Notes: Memori a Hydrochlori - (Same as: l de 5 MG 19:28: Roxicodone Herm vicente Oral Tablet 00 ) Albuterol No Notes: Memori a 0.833 MG/ML 01-10 (Same as: l / 19:27: Duoneb) Gentry Ipratropium 00 [place] 0.167 MG/ML Inhalant Solution [DuoNeb] Azelastine No 205.5 Memori a hydrochlori - microgram, l de 0.206 19:27: 1 spray, Monika nn MG/ACTUAT 00 Route: Metered NASAL, Dose Nasal Drug Form: [place] SPRY, [Astepro] Dosing Weight 109.091, kg, BID, PRN as needed for allergy symptoms, Start date: 01/10/19 14:27:00 CDT, Duration: 30 day, Stop date: 02/09/19 14:26:00 CDT tiotropium Yes 2 puffs, Mem oria 0.0025 29 INHALER, l MG/ACTUAT 19:25: Daily, # 4 He rmann Metered 00 gm, 0 Dose Refill(s) Inhaler Ranitidine No 150 mg = 1 M emoria 150 MG Oral 6-29 tab, PO, l Tablet 19:25: BID, # 60 Steven n 00 tab, 0 Refill(s) simvastatin Yes 20 mg = 1 M emoria 20 mg oral 6-29 tab, PO, l tablet 19:25: Bedtime, # Monika nn 00 30 tab, 1 Refill(s) fluticasone No INHALATION Memoria propionate - , Q12H, 0 l 113 mcg/inh 19:25: Refill(s) H ermann inhalation 00 powder Albuterol Yes 2.49 mg = Mem oria 0.83 MG/ML 01-10 3 mL, NEB, l Inhalant 19:25: Q6H, PRN Monika nn Solution 00 as needed for shortness of breath, # 120 ea, 3 Refill(s) Spironolact No 25 mg = 1 M emoria one 25 MG - tab, PO, l Oral Tablet 19:25: BID, # 180 Esteban [Aldactone] 00 tab, 0 Refill(s) Azelastine Yes 1 spray, Mem oria hydrochlori 01-10 NASAL, l de 0.206 19:25: BID, PRN Monika nn MG/ACTUAT 00 for Metered allergy Dose Nasal symptoms, [place] # 30 mL, 0 [Astepro] Refill(s) Lovenox No Notes: Memoria - (Same as: l 19:24: Lovenox) Dextrose No 25 gm, 50 Francisco carmen 50% Syringe 01-10 mL, Route: l 19:24: IVP, Drug Form: INJ, Dosing Weight 109.091, kg, PRN, PRN Blood Glucose Results, Start date: 01/10/19 14:24:00 CDT, Duration: 30 day, Stop date: 02/09/19 14:23:00 CDT, 0 Glucagon No 1 mg, Memoria 01-10 Route: IM, l 19:24: Drug form: PDR/INJ, PRN, Dosing Weight 109.091, kg, PRN Blood Glucose Results, Start date: 01/10/19 14:24:00 CDT, Duration: 30 day, Stop date: 02/09/19 14:23:00 CDT, 0 Ondansetron No Notes: Francisco carmen 01-10 (Same as: l 19:24: Zofran) MEDICATION WASTE Product Size: 4 mg Product Wasted: ___ mg Melatonin No Notes: Memori a 6-29 (Same as: l 19:24: Melatonin) Esteban 00 Fentanyl 2018-0 No 50 Memoria 6-29 microgram, l 18:23: Route: IV, Gentry 00 ONCE, Dosing Weight 109.091, kg, Priority: STAT, Start date: 01/10/19 13:23:00 CDT, Stop date: 01/10/19 13:23:00 CDT Isolyte S No Notes: Memori a PH 7.4 6-29 (Same as: l 1,000 mL 18:17: Isolyte S Herm vicente 00 PH 7.4) Morphine No Notes: Memoria 6-29 (Same l 17:43: as:MORPhin Gentry 00 e Sulfate) Fentanyl No 50 Memoria 6-29 microgram, l 12:03: Route: Gentry 00 IVP, ONCE, Dosing Weight 109.091, kg, Priority: STAT, Start date: 01/10/19 7:03:00 CDT, Stop date: 01/10/19 7:03:00 CDT Fentanyl No Notes: Memoria 6-29 (Same as: l 11:11: Sublimaze) Gentry 00 Preservat kristel free. Vital Signs Vital Name Observation Time Observation Value Comments Source Respitory Rate 2019-01-30 20:30:00 Memori al Gentry Systolic (mm Hg) 2019-01-30 20:30:00 Francisco rial Gentry Diastolic (mm Hg) 2019-01-30 20:30:00 Mem orial Gentry Systolic (mm Hg) 2019-01-30 20:00:00 Francisco rial Gentry Diastolic (mm Hg) 2019-01-30 20:00:00 Mem orial Esteban Respitory Rate 2019-01-30 20:00:00 Memori al Esteban Respitory Rate 2019-01-30 19:45:00 Memori al Esteban Systolic (mm Hg) 2019-01-30 19:45:00 Francisco rial Esteban Diastolic (mm Hg) 2019-01-30 19:45:00 Mem orial [facility] Heart Rate 2019-01-30 15:39:00 [facility] BMI Calculated 2019-01-29 16:41:00 [facility] al [facility] Height 2019-01-29 16:41:00 152.4 cm [facility] Weight 2019-01-29 16:41:00 [facility] Respitory Rate 2019-01-20 16:31:00 Memori al [place] Systolic (mm Hg) 2019-01-20 16:31:00 Francisco rial Esteban Diastolic (mm Hg) 2019-01-20 16:31:00 Mem orial [facility] Temperature Oral (F) 2019-01-20 16:31:00 98.3 F [facility] Heart Rate 2019-01-20 16:31:00 [facility] Heart Rate 2019-01-20 13:42:00 [facility] Systolic (mm Hg) 2019-01-20 13:42:00 Francisco rial [place]entry Diastolic (mm Hg) 2019-01-20 13:42:00 Mem o[facility] Respitory Rate 2019-01-20 13:42:00 Memori al [facility] Temperature Oral (F) 2019-01-20 09:37:00 97.6 F [facility] Heart Rate 2019-01-20 09:37:00 [facility] Systolic (mm Hg) 2019-01-20 09:37:00 Francisco rial [place] Diastolic (mm Hg) 2019-01-20 09:37:00 Mem [facility] Respitory Rate 2019-01-20 09:37:00 [facility] al [facility] Temperature Oral (F) 2019-01-20 05:00:00 98 F [facility] Weight 2019-01-14 16:26:00 [facility] Weight 2019-01-10 23:16:00 [facility] Height 2019-01-10 23:16:00 172.72 cm [facility] BMI Calculated 2019-01-10 23:16:00 [facility] Weight 2019-01-10 10:08:00 [facility] BMI Calculated 2019-01-10 10:08:00 [facility] Height 2019-01-10 10:08:00 165.1 cm [facility] Procedures Procedure Date / Time Performed Performing Clinician [facility] e [U] XRAY SHOULDER MIN 2019-07-17 [facility] S [facility] [id number] Physicians [U] XRAY SHOULDER MIN 2019-05-01 00:00:00 [facility] 2 S RIGHT [id number] Physicians [U] XRAY SHOULDER MIN 2019-03-03 00:00:00 [facility] 2 VWS LEFT [id number] Physicians [U] XRAY SHOULDER MIN 2019-02-10 00:00:00 [facility] 2 VWS RIGHT [id number] Physicians Post Op Promis 29 2019-01-23 00:00:00 [facility] Varicose vein 1969-07-15 00:00:00 [facility] operation Operation [facility] Plan of Care Planned Activity Planned Date Details Comments Source Future Scheduled 2021-02-12 INFL[place]ENZA VACCINE [place] [facility] 00:00:00 [code = INFLUENZA VACCINE] Future Scheduled 1992-02-08 SHINGLES VACCINES (#1) [place] [facility] 00:00:00 [code = SHINGLES VACCINES (#1)] Future Scheduled 1960-02-08 Hepatitis C screening [place] [facility] 00:00:00 (procedure) [code = 422759491] Future Scheduled 1954 COVID-19 VACCINE (1) Maritakellen bolanosaníbal [facility] 00:00:00 [code = COVID-19 VACCINE (1)] Future Scheduled 1946-02[birth year]08 65+ PNEUMOCOCCAL [place] [facility] 00:00:00 VACCINE (1 of 2 - PPSV23) [code = 65+ PNEUMOCOCCAL VACCINE (1 of 2 - PPSV23)] Encounters Start End Encounter Admission Attending Care Care Encounter Source Date/Time Date/Time Type Type Clinicians Facility Department ID 2019-09-17 2019-09-17 Outpatient [facility] [id number] [place] 00:00:00 00:00:00 JENI [address] 2019-09-17 2019-09-17 Outpatient [facility] [id number] [place] 00:00:00 00:00:00 JENI [address] 2019-07-29 2019-07-29 Appointmen [facility] [id number] [facility] 10:45:00 10:45:00 t; BAYRON MORALES, Kenn VERMA M.D. [facility] 2019-05-13 2019-05-13 Appointmen [facility] 5 [id number] [facility] 11:15:00 11:15:00 t; Kenn JESSICA P.A. [place], [place] [facility] 2019-03-11 2019-03-11 [facility]oint[facility] 5 [id number] [facility] 11:00:00 11:00:00 t; JOANNAH, Trauma ity o jose armando RAMIREZ P.A. [place], [place] [facility] 2019-02-11 2019-02-11 [facility] 5 [id number] [facility] 11:00:00 11:00:00 t; JOANNAH, Trauma bradleyy o f ASHLEY P.A. [place], [place] [facility] 2019-01-30 2019-01-30 Outpatient Andrew [facility] [id number] 09:30:00 23:59:00 Bayron Rodriguez 2019-01-30 2019-01-30 Outpatient [facility] [facility] 09:30:00 09:30:00 2019-01-30 2019-01-[facility] [id number] Univers 07:00:00 07:00:00 t; BAYRON MORALES ity o f ANDREW, M.D. [place] M.D. [facility] 2019-01-28 2019-01-28 [facility] [id number] Univers 12:00:00 12:00:00 t; BAYRON MORALES ity o f ANDREW, M.D. [place] M.D. [facility] 2019-01-10 2019-01-20 Outpatient Nav [facility] [id number] 05:05:00 11:50:00 [place] 00 Daryl 2019-01-13 2019-01-13 Appointtereso [facility] UTP [id number] Univers 09:00:00 09:00:00 t; BAYRON MORALES ity o f ANDREW, M.D. [place] M.D. [facility] Results Test Description Test Time Test Comments Results Result [facility] e Comments [U] XRAY SHOULDER 2019-03-11 Images Univers ity of MIN 2 VWS RIGHT 10:33:00 acquired, not [place] [id number] reported on Physicians this accession number. [U] XRAY SHOULDER 2019-03-11 Images Univers ity of MIN 2 VWS LEFT 10:33:00 acquired, not [place] [id number] reported on Physicians this accession number. [U] XRAY SHOULDER 2019-02-11 Images Univers ity of MIN 2 VWS RIGHT 10:43:00 acquired, not [place] [id number] reported on Physicians this accession number. [U] XRAY SHOULDER 2019-02-11 Images Univers ity of MIN 2 VWS LEFT 10:43:00 acquired, not [place] [id number] reported on Physicians this accession number. HEMATOLOGY 2019-01-30 35.5 [facility] 16:03:00 [facility] HEMATOLOGY 2019-01-30 11.9 [facility] 16:03:00 [place] HEMATOLOGY 2019-01-30 10.1 [facility] 16:03:00 [facility] HEMATOLOGY 2019-01-30 91.0 [facility] 16:03:00 [place] HEMATOLOGY 2019-01-30 33.5 [facility] 16:03:00 [place] HEMATOLOGY 2019-01-30 16:03:00 Test Item Value Reference Range Interpretation Comme nts MCH (test code = MCH) 30.4 pg 27.0-31.0 [facility] MrviqmoVFNHLGLDOT3735-85-71 16:03:0014.9[facility] 2019-01-30 16:03:74264Cdbdtaye SmcqsksXFJZTYTRIG0917-50-03 16:03:006.1[facility] MqjoqciBQARJMUMTY5360-31-53 16:03:003.90[facility] MynloevILVOVPIAJH3978-70-96 16:03:0089.4[facility] QtekhwdOVVBYWDYEG8147-52-43 16:03:004.9[facility] VNFGCFGRHU6149-48-42 16:03:000.1[facility] CzlhqxgZALXBZXZGA0762-95-73 16:03:009.1 [facility] CbcpbsmMZQZTCUYRW0330-10-74 16:03:004.4[facility] 2019-01-30 16:03:000.7[facility] AjvymdvWBXBPZLTRI7457-44-85 16:03:000.6[facility] GuuogihMFKWDWMVHE7080-69-64 16:03:000.1[facility] QzdhlkbORZUGNNXIQ9051-16-08 16:03:000.5[facility] PykomibNGZOVXNLJT8621-34-81 16:03:000.4[facility][U] XRAY SHOULDER MIN 2 VWS RIGHT [id number] 13:04:00Images acquired, not reported on this accession number.[facility] Physicians[U] XRAY SHOULDER MIN 2 VWS LEFT [id number] 12:30:00Images acquired, not reported on this accession number.[facility] GfckncwhitROFFOPJFSM1239-65-42 10:56:006.5[facility] NxyibnqXXQEEMFKZC9203-21-72 10:56:00 Test Item Value Reference Range Interpretation Comments MCH (test code = MCH) 30.5 pg 27.0-31.0 [facility] IeoaqpnHKQQESNQYF2213-33-19 10:56:0088.6[facility] 2019-01-16 10:56:69938Yefwnggx NplbjtoRGEAQMVFYZ9186-56-17 10:56:0013.6[facility] UscwkouQTZCRVWGLH5907-26-12 10:56:0034.4[facility] PtxcnjeBZNCJFJYSO7620-99-83 10:56:0012.1[facility] MmejdyhUXAXMJRNBB6037-23-56 10:56:0025.9[facility] JHCEXTCMDV1088-89-75 10:56:008.9[facility] TxyjnvbXZUOEGASDK5980-18-22 10:56:00 2.92[facility] CkljcmnLFAENNIGAP3232-32-76 10:56:000.2[facility]ann[facility]MATOLOGY 2019-01-16 10:56:0010.3[facility] ZvmzdiyNSZITWHYVR7616-04-01 10:56:001.0[facility] ZcsueyzAFBPRAKFQU3253-07-11 10:56:000.7[facility] DrnrrueVUBJUULTPV8467-85-69 10:56:0085.4[facility] BnouydgWKAFDWXGOE2177-98-72 10:56:008.3[facility] OZWJCZOYCR7983-36-06 10:56:005.9[facility] PukpaazAWOHYYSGQT2946-75-29 10:56:000.2 [facility]annCHEM KJEQG4893-60-20 13:54:000.52[facility]annCHEM PANEL 2019-01-15 10:06:002.2[facility] HermannCHEM FQOVH3021-11-78 10:06:003.3[facility] EvaxatkQTOOMVQZXIUC6942-15-36 10:06:0011.0[facility] WqdfknsJMGQPAMAQQVA3107-61-79 10:06:0078[facility] GliahbzHLCZRLYMJZCO9287-25-71 10:06:77215Uemjgpkf Esteban YNACXJQEOSWP6533-22-17 10:06:004.0[facility] FlfbxlrUQFSJKQRMMFQ7606-93-64 10:06:0017[facility] OhzflgeRGNSICSLYSUF2386-92-37 10:06:000.75[facility] BHGZUUAYLSEF2714-22-08 10:06:0032[facility] IxlrrhwIYGEOHVJTUZX8832-98-26 10:06:00 96[facility] QjfkdoqNKKZLBHSFWXW5870-44-67 10:06:009.3[facility] HermannELECTROLYTES 2019-01-15 10:06:70285Ujtdzsae LhvplohROUZQFGSXW9340-89-07 10:06:005.7[facility] JqiomxgCIXDRJZZAS5590-24-72 10:06:000.1[facility] BrfygxmCECRANVMYL6896-24-08 10:06:000.6[facility] QqvzigyFEZWBZLHTR0457-75-95 10:06:000.3[facility] BXUHEEPJZF4945-84-45 10:06:000.8[facility] QuxcpefGHMITGFWJD8081-05-55 10:06:004.1 [facility] ZziasdvZKLHXKXGSY6870-19-96 10:06:0089.5[facility]annHEMATOLOGY 2019-01-15 10:06:0013.1[facility] DkxqifsGJNFTPXBBS3410-68-32 10:06:000.4[facility] QzdhzujQKLSXFXVSS4184-29-68 10:06:00Normal (01/15/19 5:06 AM)[facility] BAQVHCBCLO2519-09-49 10:06:00Normal (01/15/19 5:06 AM)[facility]ann[facility]MATOLOGY 2019-01-15 10:06:31671Alospoav TxmeesoELCYCMITEN2423-70-77 10:06:0013.1[facility] OavmleePRKYJIWQES6682-21-97 10:06:007.0[facility] DylxvwjEAQYAUPNVG5236-39-92 10:06:003.25[facility] UrciqjvAOUBFXKHMU5493-47-78 10:06:0014.6[facility] DSJKIINPYL9941-94-17 10:06:0033.6[facility] IztyffiXBJEMCUHXK6828-75-66 10:06:00 Test Item Value Reference Range Interpretation Comments MCH (test code = MCH) 30.0 pg 27.0-31.0 [facility] XeosrmuNVPHTPDXZB6961-82-08 10:06:0089.4[facility]annHEMATOLOGY 2019-01-15 10:06:0029.1[facility] IjrvawiACWWVDQFCJ5247-21-56 10:06:009.8[facility] YikdlwbIJKFXMQHITLX5677-23-42 08:56:0011.1[facility] CczkkztMJPJZUKUJYFG7825-07-83 08:56:008.8[facility] RnzvrbhNBXFXTCRBPPG1992-36-87 08:56:0088[facility] KTUBGDLXZCXZ4802-68-72 08:56:04796Tjfelobg EajefqiLXMCULDTBNCJ0016-73-24 08:56:0032[facility] WalojgcRPPQFBWNRVNW1522-73-21 08:56:0095[facility] BBYKITOANHUT0925-63-91 08:56:004.1[facility] IcjzlxoQBHBLVQQNXKA3204-46-69 08:56:86958Idxpihum IzwbnjcMVTZYLTGSRIB0270-01-32 08:56:0014[facility] LOTTTMUEVUXJ5051-08-03 08:56:000.61[facility] DfsbfliHBRPSJZWWD7817-49-04 08:56:00 4.0[facility] BqlexbmHUCWHRFRKX9475-64-70 08:56:0011.1[facility]annHEMATOLOGY 2019-01-14 08:56:000.0[facility] KqzhrpvKEUYOBTFPY8709-41-52 08:56:000.5[facility] DtrsioqAAPZVNVSYY6704-95-01 08:56:000.3[facility] VcqjfvbFNVHMPARNA2429-80-96 08:56:003.0[facility] MmcqzyaKLRXWBIPJE9930-36-93 08:56:0093.0[facility] KIENMBQOEM8160-17-38 08:56:00Normal (01/14/19 3:56 AM)[facility]MATOLOG[facility] 2019-01-14 08:56:00Normal (01/14/19 3:56 AM)[facility] QotbqcqURHIMWRNSI5211-06-56 08:56:0087.6[facility] PaljxvtTAUIFXMXID0914-60-14 08:56:00 Test Item Value Reference Range Interpretation Comments MCH (test code = MCH) 30.4 pg 27.0-31.0 [facility] LfgclqeYOMBVHDOEB1226-75-95 08:56:0026.4[facility]annHEMATOLOGY 2019-01-14 08:56:003.02[facility] BlhsgbcINCAZMVZUT7452-24-82 08:56:009.2[facility] PpmhgjhCTXRNVNEBZ2839-62-54 08:56:006.5[facility] ZdfmqpqFAJFGXAISJ0204-92-23 08:56:0034.7[facility] LwcuwnhCCYUYUXHFB7782-46-25 08:56:0012.9[facility] BWWKXHPHPP8394-62-16 08:56:79119Qbpzbxxv PkxptjfLPBEGSXPRR2349-80-53 08:56:00 11.9[facility]annBL[facility]OD BANK WXOWVNZ8522-58-83 08:39:00Negative (01/13/19 3:39 AM)[facility]annCHEM BNBYO4769-88-04 08:39:0089[facility] HermannCHEM PANEL 2019-01-13 08:39:000.59[facility] HermannCHEM SOEOE8097-24-97 08:39:0094[facility] HermannCHEM TSBEW3756-02-51 08:39:0011[facility] HermannCHEM YRJBL9458-32-88 08:39:53096Wqblvtvz HermannCHEM ZJBZM8312-77-74 08:39:0092[facility] HermannCHEM RRTZP9142-84-89 08:39:004.1[facility] HermannCHEM JDKXT4547-76-77 08:39:009.3 [facility]annCHEM BOUGB5412-89-71 08:39:0030[facility] HermannCHEM PANEL 2019-01-13 08:39:0012.1[facility] WtwselzHKJXTFSBCC9752-05-78 08:39:00 Test Item Value Reference Range Interpretation Comments INR (test code = INR) 0.92 1 0.85-1.17 [facility] XpvcgejQMIUIGIDED8202-45-73 08:39:00 Test Item Value Reference Range Interpretation Comments PT (test code = PT) 12.2 s 12.0-14.7 [facility] ZwacwakXYIDXKVYOL3341-79-90 08:39:00 Test Item Value Reference Range Interpretation Comments PTT (test code = PTT) 33.2 s 22.9-35.8 [facility] KldihjrJSPQFSTPQK7811-83-32 08:39:000.4[facility] HermannHEMATOLOGY 2019-01-13 08:39:000.1[facility] UhqwnxhNKSYVBEFUY1486-47-36 08:39:002.5[facility] RlwohhyLERIFYSEUD0645-26-55 09:59:000.4[facility] QtitlcwVUBZSSAIHX5618-68-34 09:59:00 Test Item Value Reference Range Interpretation Comments Tot Cell Ct (test code = Tot Cell Ct) 100 1 [facility] ZqpglhaODRQMSVXIH7101-23-04 09:59:00Normal (01/12/19 4:59 AM)[facility] HytdiplVNNGZVBCHE8561-60-97 09:59:000.0[facility] KhpqkbwISJFQRUFSV0511-16-62 09:59:00Normal (01/12/19 4:59 AM)[facility] EqwitcwFFJUMGYDHR5585-35-35 09:59:003.0 [facility] EfbvchsPXHJWAPGUB1191-28-55 18:11:48 Test Item Value Reference Range Interpretation Comments INR (test code = INR) 0.93 1 0.85-1.17 [facility] IgeeyinZMXRSYRWIB3095-75-99 18:11:48 Test Item Value Reference Range Interpretation Comments PT (test code = PT) 12.3 s 12.0-14.7 [facility]WLABTKIJF0768-63-26 18:11:48 Test Item Value Reference Range Interpretation Comments PTT (test code = PTT) 22.4 s 22.9-35.8 [facility] WEEAOAM3361-65-99 17:59:00Negative (01/10/19 12:59 PM) [facility] CenterMakjhajQTCJBCEUYD3836-56-10 14:09:00 Test Item Value Reference Range Interpretation Comments PTT (test code = PTT) 26.3 s 22.9-35.8 [facility] CenterRgaopwzMAMVHJGPWG3432-66-03 14:09:00 Test Item Value Reference Range Interpretation Comments INR (test code = INR) 0.93 1 0.85-1.17 [facility] CenterEqneqiiAZCXPMIYBI3341-23-58 14:09:00 Test Item Value Reference Range Interpretation Comments PT (test code = PT) 12.3 s 12.0-14.7 [facility] CenterOppfsnzVIWDDDNBTG4798-97-48 14:09:000.1[facility] 14[facility]09[facility]
[2020-12-17] MEDS ORDERED: IPRATROPIUM BROM 0.5MG/2.5ML ONE (09:38)
[2020-12-17] MEDS ORDERED: DIPHENHYDRAMINE 50 MG/ML VIAL ONE (09:38)
[2020-12-17] MEDS ORDERED: METHYLPREDNISOLONE 125 MG INJ ONE (09:38)
[2020-12-17] MEDS ORDERED: LEVALBUTEROL 1.25 MG/3 ML NEB ONE (09:38)
[2020-12-17] MEDS ORDERED: NA CHLORIDE 0.9% 1,000 ML ONE (09:39)
[2020-12-17] MEDS ORDERED: FAMOTIDINE 20 MG/2 ML VIAL IV ONE (09:39)
[2020-12-17 09:44] LABS: Absolute Lymphocytes (CBC) 1.7 K/uL (0.7-4.9); Basophils % 0.7 % (0-1.3); Hematocrit 37.6 % (36.0-45.0); Lymphocytes % 12.5 % (15.3-44.8); MPV 6.9 fL (7.6-11.3); Protime INR 0.95; RBC Red Blood Cell Count 4.34 M/uL (3.86-4.86)
[2020-12-17 09:58] LABS: ALT/SGPT 18 U/L (12-78); AST/SGOT 14 U/L (15-37); Albumin 3.5 g/dL (3.4-5.0); Alkaline Phosphatase 88 U/L (45-117); BUN Blood Urea Nitrogen 14 mg/dL (7-18); Bicarbonate 30 mmol/L (21-32); Bilirubin Direct 0.1 mg/dL (0-0.2); Bilirubin Total 0.3 mg/dL (0.2-1.0); Glucose Level 120 mg/dL (74-106); Lipase 100 U/L (73-393); Magnesium 2.1 mg/dL (1.8-2.4); NT PRO-BNP 495 pg/mL (<450); Potassium 3.9 mmol/L (3.5-5.1); Protein, Total 7.2 g/dL (6.4-8.2); Sodium Level 136 mmol/L (136-145); Troponin (Emerg Dept Use Only) < 0.02 ng/mL (0.0-0.045)
--- NOTE | 2020-12-17 10:10 | RAD REPORT ---
EXAM DESCRIPTION: CT - Chest Abdomen Pelvis W Cont - 12/17/2020 9:36 am CLINICAL HISTORY: Chest and abdomen pain. Abdominal distention;Pain COMPARISON: Chest Single View dated 06/22/2019; Chest Single View dated 06/16/2017 TECHNIQUE: Approximately 100 mL nonionic IV contrast was administered to the patient. All CT scans are performed using dose optimization technique as appropriate and may include automated exposure control or mA/KV adjustment according to patient size. FINDINGS: The lungs are emphysematous.Irregular mass like lesions are present along right inferior p leural surface the largest 5.1 x 3.8 cm.No intrathoracic adenopathy. Mild fatty liver is present. 3 cm benign-appearing cyst is seen likely emanating from the left lobe l iver. No intra or extrahepatic biliary tree dilatation. Cholelithiasis with gallbladder distention se en. The spleen adrenal glands and kidneys are within normal limits. No pancreatic abnormality seen. No bowel obstruction, free air, free fluid or abscess. The appendix is not identified as a discrete s tructure, however, no secondary findings of appendicitis are identified. Scattered diverticulosis co li of the sigmoid colon without diverticulitis. No pathologic lymphadenopathy in the abdomen or pelvi s. No worrisome osseous finding. IMPRESSION: Cholelithiasis with gallbladder distention. Masslike lesions, largest measuring 5 cm, along the inferior right pleural space likely related to ne oplasia or metastatic disease.
--- NOTE | 2020-12-17 10:26 | ER ---
Nurse's Notes [facility] Name: Mariama Wayne Age: 80 yrs Sex: Female : 1940 Arrival Date: 12/17/2020 Time: 08:34 Bed 7 Private MD: Diagnosis: Chronic obstructive pulmonary disease with (acute) exacerbation-right lower lung masses, pleural based;Abdominal tenderness;Cholelithiasis;Urinary tract infection, site not specified Presentation: 12/17 08:35 Chief complaint: EMS states: Right flank and RUQ pain x 1 week. Denies N/V/D or urinary hb s/s. Coronavirus screen: At this time, the client does not indicate any symptoms associated with coronavirus-19. Ebola Screen: No symptoms or risks identified at this time. Initial Sepsis Screen: Does the patient meet any 2 criteria? No. Patient's initial sepsis screen is negative. Does the patient have a suspected source of infection? No. Patient's initial sepsis screen is negative. Risk Assessment: Do you want to hurt yourself or someone else? Patient reports no desire to harm self or others. Onset of symptoms was December 11, 2020. 08:35 Method Of Arrival: EMS: [facility] hb 08:35 Acuity: JAIME 3 hb Triage Assessment: 08:45 General: Appears in no apparent distress. Behavior is calm, cooperative. Pain: Pain hb currently is 3 out of 10 on a pain scale. EENT: No signs and/or symptoms were reported regarding the EENT system. Neuro: Level of Consciousness is awake, alert, obeys commands, Oriented to person, place, time, situation. Cardiovascular: Patient's skin is warm and dry. Rhythm is regular. Respiratory: Respiratory effort is even, labored, at baseline per patient Respiratory pattern is regular. GI: Reports upper abdominal pain, flank pain. : No signs and/or symptoms were reported regarding the genitourinary system. Derm: Skin is pink, warm \T\ dry. Musculoskeletal: Reports flank pain. Historical: - Allergies: 08:44 Erythromycin; hb 08:44 Fish Containing Products; hb 08:44 PENICILLINS; hb 08:44 SEAFOOD; hb 08:44 Sulfa (Sulfonamide Antibiotics); hb - Home Meds: 08:44 famotidine 20 mg Oral tab once daily [Active]; Flonase 50 mcg/actuation Nasal spsn 2 hb times per day [Active]; albuterol sulfate 2.5 mg /3 mL (0.083 %) Inhl nebu as needed [Active]; calcium carbonate 600 mg (1,500 mg) oral tab [Active]; Vitamin D3 oral oral [Active]; Centrum Silver Women 8 mg iron-400 mcg-300 mcg oral tab daily [Active]; Daliresp 500 mcg oral tab 1 tab once daily [Active]; oxygen 2-4L/min [Active]; Perforomist 20 mcg/2 mL inhalation nebu 2 mL 2 times per day [Active]; simvastatin 20 mg Oral tab 1 tab once daily [Active]; Spiriva with HandiHaler 18 mcg inhalation CpDv once daily [Active]; spironolactone 25 mg Oral tab 1 tab once daily [Active]; Ventolin HFA 90 mcg/actuation Nebulizer HFAA 2 puffs every 4 hours [Active]; vitamin b12 [Active]; Vitamin C 1,000 mg Oral tab twice a day [Active]; glucosamine-chondroitin 750-600 mg oral tab twice a day [Active]; - PMHx: 08:44 COPD; High Cholesterol; hb - PSHx: 08:44 cataract; hb - Immunization history:: Adult Immunizations up to date. - Social history:: Smoking status: Patient/guardian denies using tobacco. Screenin:53 Abuse screen: Denies threats or abuse. Denies injuries from another. Nutritional hb screening: No deficits noted. Tuberculosis screening: No symptoms or risk factors identified. Fall Risk None identified. Assessment: 08:53 General: see triage assessment . hb 09:45 Reassessment: No changes from previously documented assessment. Patient and/or family hb updated on plan of care and expected duration. Pain level reassessed. 10:29 Reassessment: Pt up to bedside commode with assistance. Respirations 32-40 and SpO2 88% hb on 2LNC afterwards. Improved to 96% and R24 after increased to 3LNC and use of pt provided flutter valved for 2 minutes. 12:00 Reassessment: No changes from previously documented assessment. Patient and/or family hb updated on plan of care and expected duration. Pain level reassessed. 13:00 Reassessment: No changes from previously documented assessment. Patient and/or family hb updated on plan of care and expected duration. Pain level reassessed. 14:00 Reassessment: No changes from previously documented assessment. Patient and/or family hb updated on plan of care and expected duration. Pain level reassessed. Vital Signs: 08:35 BP 119 / 93; Pulse 105; Resp 18; Temp 98.3; Pulse Ox 98% on 2 lpm NC; Pain 3/10; hb 09:30 BP 143 / 86; Pulse 89; Resp 22; Pulse Ox 97% 2 lpm ; hb 10:20 Pulse 132; Resp 40; Pulse Ox 88% on NC; hb 10:32 BP 140 / 80; Pulse 115; Resp 24; Pulse Ox 96% on 3 lpm NC; hb 11:15 BP 128 / 78; Pulse 117; Resp 23; Pulse Ox 98% on 3 lpm NC; hb 12:15 BP 136 / 79; Pulse 122; Resp 22; Pulse Ox 95% on 3 lpm NC; hb 13:45 BP 132 / 82; Pulse 115; Resp 23; Pulse Ox 100% on 3 lpm NC; hb ED Course: 08:34 Patient arrived in ED. hb 08:36 Triage completed. hb 08:45 Arm band placed on. hb 08:52 Inserted saline lock: 20 gauge in left forearm, using aseptic technique. kg 08:53 Patient has correct armband on for positive identification. Bed in low position. Call hb light in reach. 08:55 Cristobal Antunez MD is Attending Physician. hanny 09:13 Sunitha Tillman, RN is Primary Nurse. hb 09:36 CT Chest, Abdomen, Pelvis - W/Contrast In Process Unspecified. EDMS 09:56 XRAY Chest (1 view) In Process Unspecified. EDMS 10:20 Nimesh Araya is Hospitalizing Provider. hanny 10:33 US Abdomen Limited Sent. hb 10:35 US Abdomen Limited In Process Unspecified. EDMS 14:26 No provider procedures requiring assistance completed. Patient admitted, IV remains in hb place. Administered Medications: 09:27 Drug: SOLU-Medrol (methylPrednisoLONE) 125 mg Route: IVP; Site: left forearm; hb 09:27 Drug: Pepcid (famotidine) 20 mg Route: IVP; Site: left forearm; hb 09:27 Drug: Benadryl (diphenhydrAMINE) 25 mg Route: IVP; Site: left forearm; hb 09:49 Drug: NS 0.9% 500 ml Route: IV; Rate: bolus; Site: left forearm; hb 09:50 Drug: Xopenex (levalbuterol) 3.75 mg Route: Inhalation; hb 09:50 Drug: AtroVENT (ipratropium) Aerosol 0.5 mg Route: Inhalation; hb 10:54 Drug: NS 0.9% 1000 ml Route: IV; Rate: 125 ml/hr; Site: left forearm; hb 11:30 Drug: LevaQUIN (levofloxacin) 500 mg Volume: 100 ml; Route: IVPB; Infused Over: 60 hb mins; Site: left forearm; 12:30 Drug: Ultracet (tramadol-acetaminophen) 1 tabs Route: PO; kg Outcome: 10:25 Decision to Hospitalize by Provider. hanny 14:26 Admitted to Tele accompanied by tech, family with patient, via wheelchair, room 431, hb with oxygen, with chart, Report called to Jennifer LINDO 14:26 Condition: stable 14:26 Instructed on the need for admit, Demonstrated understanding of instructions. 14:34 Patient left the ED. hb Signatures: Dispatcher [employer] EDMS Cristobal Antunez MD MD cha Baxter, Heather, BELGICA RN Danyelle Craig RN RN kg Corrections: (The following items were deleted from the chart) 10:33 10:32 Pulse 115bpm; Resp 24bpm; Pulse Ox 96% 3 lpm Nasal Cannula; hb hb
--- NOTE | 2020-12-17 10:26 | EDPHYS ---
Physician Documentation [facility] Name: Mariama Wayne Age: 80 yrs Sex: Female : 1940 Arrival Date: 12/17/2020 Time: 08:34 Bed 7 Private MD: ED Physician Cristobal Antunez HPI: 12/17 09:12 This 80 yrs old Female presents to ER via EMS with complaints of Flank Pain. hanny 09:12 The patient complains of pain in the right mid back. The pain radiates to the right hanny upper quadrant and right lower quadrant. Onset: The symptoms/episode began/occurred 3 day(s) ago. Modifying factors: The symptoms are alleviated by nothing. the symptoms are aggravated by nothing. Associated signs and symptoms: The patient has no apparent associated signs or symptoms. Severity of pain: At its worst the pain was moderate in the emergency department the pain is unchanged. The patient has not experienced similar symptoms in the past. Historical: - Allergies: 08:44 Erythromycin; hb 08:44 Fish Containing Products; hb 08:44 PENICILLINS; hb 08:44 SEAFOOD; hb 08:44 Sulfa (Sulfonamide Antibiotics); hb - Home Meds: 08:44 famotidine 20 mg Oral tab once daily [Active]; Flonase 50 mcg/actuation Nasal spsn 2 hb times per day [Active]; albuterol sulfate 2.5 mg /3 mL (0.083 %) Inhl nebu as needed [Active]; calcium carbonate 600 mg (1,500 mg) oral tab [Active]; Vitamin D3 oral oral [Active]; Centrum Silver Women 8 mg iron-400 mcg-300 mcg oral tab daily [Active]; Daliresp 500 mcg oral tab 1 tab once daily [Active]; oxygen 2-4L/min [Active]; Perforomist 20 mcg/2 mL inhalation nebu 2 mL 2 times per day [Active]; simvastatin 20 mg Oral tab 1 tab once daily [Active]; Spiriva with HandiHaler 18 mcg inhalation CpDv once daily [Active]; spironolactone 25 mg Oral tab 1 tab once daily [Active]; Ventolin HFA 90 mcg/actuation Nebulizer HFAA 2 puffs every 4 hours [Active]; vitamin b12 [Active]; Vitamin C 1,000 mg Oral tab twice a day [Active]; glucosamine-chondroitin 750-600 mg oral tab twice a day [Active]; - PMHx: 08:44 COPD; High Cholesterol; hb - PSHx: 08:44 cataract; hb - Immunization history:: Adult Immunizations up to date. - Social history:: Smoking status: Patient/guardian denies using tobacco. ROS: 09:13 Constitutional: Negative for fever, chills, and weight loss, Eyes: Negative for injury, hanny pain, redness, and discharge, ENT: Negative for injury, pain, and discharge, Neck: Negative for injury, pain, and swelling, Cardiovascular: Negative for chest pain, palpitations, and edema, Respiratory: Negative for shortness of breath, cough, wheezing, and pleuritic chest pain, : Negative for injury, bleeding, discharge, and swelling, MS/Extremity: Negative for injury and deformity, Skin: Negative for injury, rash, and discoloration, Neuro: Negative for headache, weakness, numbness, tingling, and seizure, Psych: Negative for depression, anxiety, suicide ideation, homicidal ideation, and hallucinations, Allergy/Immunology: Negative for hives, rash, and allergies, Endocrine: Negative for neck swelling, polydipsia, polyuria, polyphagia, and marked weight changes, Hematologic/Lymphatic: Negative for swollen nodes, abnormal bleeding, and unusual bruising. 09:13 Abdomen/GI: Positive for abdominal pain, of the right upper quadrant. 09:13 Back: Positive for pain at rest, flank pain, on the right. Exam: 09:13 Constitutional: This is a well developed, well nourished patient who is awake, alert, hanny and in no acute distress. Head/Face: Normocephalic, atraumatic. Eyes: Pupils equal round and reactive to light, extra-ocular motions intact. Lids and lashes normal. Conjunctiva and sclera are non-icteric and not injected. Cornea within normal limits. Periorbital areas with no swelling, redness, or edema. ENT: Nares patent. No nasal discharge, no septal abnormalities noted. Tympanic membranes are normal and external auditory canals are clear. Oropharynx with no redness, swelling, or masses, exudates, or evidence of obstruction, uvula midline. Mucous membranes moist. Neck: Trachea midline, no thyromegaly or masses palpated, and no cervical lymphadenopathy. Supple, full range of motion without nuchal rigidity, or vertebral point tenderness. No Meningismus. Chest/axilla: Normal chest wall appearance and motion. Nontender with no deformity. No lesions are appreciated. Cardiovascular: Regular rate and rhythm with a normal S1 and S2. No gallops, murmurs, or rubs. Normal PMI, no JVD. No pulse deficits. Back: No spinal tenderness. No costovertebral tenderness. Full range of motion. Female : Normal external genitalia. Skin: Warm, dry with normal turgor. Normal color with no rashes, no lesions, and no evidence of cellulitis. MS/ Extremity: Pulses equal, no cyanosis. Neurovascular intact. Full, normal range of motion. Neuro: Awake and alert, GCS 15, oriented to person, place, time, and situation. Cranial nerves II-XII grossly intact. Motor strength 5/5 in all extremities. Sensory grossly intact. Cerebellar exam normal. Normal gait. Psych: Awake, alert, with orientation to person, place and time. Behavior, mood, and affect are within normal limits. 09:13 Respiratory: mild respiratory distress is noted, Respirations: labored breathing, is not present, Breath sounds: bronchial sounds, that are mild, decreased breath sounds, that are mild, rhonchi, that are mild, stridor, is not appreciated, + upper airway congestion. wheezing: expiratory Respiratory rate: 18 10:45 ECG was reviewed by the Attending Physician. [facility] Vital Signs: 08:35 BP 119 / 93; Pulse 105; Resp 18; Temp 98.3; Pulse Ox 98% on 2 lpm NC; Pain 3/10; hb 09:30 BP 143 / 86; Pulse 89; Resp 22; Pulse Ox 97% 2 lpm ; hb 10:20 Pulse 132; Resp 40; Pulse Ox 88% on NC; hb 10:32 BP 140 / 80; Pulse 115; Resp 24; Pulse Ox 96% on 3 lpm NC; hb 11:15 BP 128 / 78; Pulse 117; Resp 23; Pulse Ox 98% on 3 lpm NC; hb 12:15 BP 136 / 79; Pulse 122; Resp 22; Pulse Ox 95% on 3 lpm NC; hb 13:45 BP 132 / 82; Pulse 115; Resp 23; Pulse Ox 100% on 3 lpm NC; hb MDM: 08:55 Patient medically screened. [facility] 09:15 Differential diagnosis: nephrolithiasis, pyelonephritis, diverticulitis, pancreatitis, hanny bowel obstruction, coronary artery disease, cholecystitis, Cholelithiasis, gastritis, gastroesophageal reflux disease, Mesenteric ischemia or infarction, non-specific abd pain, pancreatitis, Peptic Ulcer Disease, Peritonitis, Pyelonephritis, Ureterolithiasis, urinary tract infection. Data reviewed: vital signs, nurses notes, lab test result(s), EKG, radiologic studies, CT scan, plain films, ultrasound. Data interpreted: monitor worker: rate is 105 beats/min, rhythm is regular, Pulse oximetry: on room air is 98 %. Test interpretation: by ED physician or midlevel provider: ECG, plain radiologic studies. Counseling: I had a detailed discussion with the patient and/or guardian regarding: the historical points, exam findings, and any diagnostic results supporting the discharge/admit diagnosis, lab results, radiology results. 12/17 09:12 Order name: Basic Metabolic Panel; Complete Time: 10:16 [facility] 12/17 09:12 Order name: CBC with Diff; Complete Time: 10:16 [facility] 12/17 09:12 Order name: LFT's; Complete Time: 10:16 [facility] 12/17 09:12 Order name: Magnesium; Complete Time: 10:16 [facility] 12/17 09:12 Order name: NT PRO-BNP; Complete Time: 10:16 [facility] 12/17 09:12 Order name: PT-INR; Complete Time: 10:16 [facility] 12/17 09:12 Order name: Troponin (emerg Dept Use Only); Complete Time: 10:16 [facility] 12/17 09:12 Order name: Lipase; Complete Time: 10:16 [facility] 12/17 09:12 Order name: Blood Culture Adult (2) [facility] 12/17 10:28 Order name: Urine Dipstick-Ancillary; Complete Time: 10:45 [facility] 12/17 10:33 Order name: Urine Microscopic Only 12/17 10:34 Order name: Urine Microscopic Only; Complete Time: 11:24 [facility] 12/17 10:51 Order name: Urine Culture [facility] 12/17 09:12 Order name: XRAY Chest (1 view) [facility] 12/17 09:12 Order name: EKG; Complete Time: 09:13 [facility] 12/17 09:12 Order name: Cardiac monitoring; Complete Time: 09:14 [facility] 12/17 09:12 Order name: EKG - Nurse/Tech; Complete Time: 10:33 [facility] 12/17 09:12 Order name: US Abdomen Limited [facility] 12/17 09:12 Order name: CT Chest, Abdomen, Pelvis - W/Contrast; Complete Time: 10:16 [facility] 12/17 12:45 Order name: SARS-COV-2 RT PCR [facility] 12/17 09:12 Order name: IV Saline Lock; Complete Time: 09:14 [facility] 12/17 09:12 Order name: Labs collected and sent; Complete Time: 09:50 [facility] 12/17 09:12 Order name: O2 Per Protocol; Complete Time: 09:14 [facility] 12/17 09:12 Order name: O2 Sat Monitoring; Complete Time: 09:14 [facility] EC:45 Rate is 113 beats/min. Rhythm is regular. QRS Gheens is Normal. IN interval is normal. [facility] QRS interval is normal. QT interval is normal. No Q waves. T waves are Normal. No ST changes noted. Clinical impression: NSR w/ Non-specific ST/T Changes and No evidence of ischemia. Interpreted by me. Reviewed by me. Administered Medications: 09:27 Drug: SOLU-Medrol (methylPrednisoLONE) 125 mg Route: IVP; Site: left forearm; hb 09:27 Drug: Pepcid (famotidine) 20 mg Route: IVP; Site: left forearm; hb 09:27 Drug: Benadryl (diphenhydrAMINE) 25 mg Route: IVP; Site: left forearm; hb 09:49 Drug: NS 0.9% 500 ml Route: IV; Rate: bolus; Site: left forearm; hb 09:50 Drug: Xopenex (levalbuterol) 3.75 mg Route: Inhalation; hb 09:50 Drug: AtroVENT (ipratropium) Aerosol 0.5 mg Route: Inhalation; hb 10:54 Drug: NS 0.9% 1000 ml Route: IV; Rate: 125 ml/hr; Site: left forearm; hb 11:30 Drug: LevaQUIN (levofloxacin) 500 mg Volume: 100 ml; Route: IVPB; Infused Over: 60 hb mins; Site: left forearm; 12:30 Drug: Ultracet (tramadol-acetaminophen) 1 tabs Route: PO; kg Disposition: 12/17/20 10:25 Hospitalization ordered by Nimesh Araya for Inpatient Admission. Preliminary diagnosis are Chronic obstructive pulmonary disease with (acute) exacerbation - right lower lung masses, pleural based, Abdominal tenderness, Cholelithiasis, Urinary tract infection, site not specified. - Bed requested for Telemetry/MedSurg (Inpatient). - Status is Inpatient Admission. hb - Condition is Fair. - Problem is new. - Symptoms have improved. Signatures: Dispatcher [employer] EDFL Sienna Lamb RN RN kl Anderson, Corey, MD MD cha Baxter, Heather, RN RN Danyelle Craig RN RN kg Corrections: (The following items were deleted from the chart) 11:04 10:25 Hospitalization Ordered by Nimesh Araya for Inpatient Admission. Preliminary [facility] diagnosis is Chronic obstructive pulmonary disease with (acute) exacerbation - right lower lung masses, pleural based; Abdominal tenderness; Cholelithiasis. Bed requested for Telemetry/MedSurg (Inpatient). Status is Inpatient Admission. Condition is Fair. Problem is new. Symptoms have improved. [facility] 11:47 09:13 CORONAVIRUS+MR.LAB.BRZ ordered. [facility] 13:18 11:04 12/17/2020 10:25 Hospitalization Ordered by Nimesh Araya for Inpatient kl Admission. Preliminary diagnosis is Chronic obstructive pulmonary disease with (acute) exacerbation - right lower lung masses, pleural based; Abdominal tenderness; Cholelithiasis; Urinary tract infection, site not specified. Bed requested for Telemetry/MedSurg (Inpatient). Status is Inpatient Admission. Condition is Fair. Problem is new. Symptoms have improved. [facility] 14:34 13:18 12/17/2020 10:25 Hospitalization Ordered by Nimesh Araya for Inpatient hb Admission. Preliminary diagnosis is Chronic obstructive pulmonary disease with (acute) exacerbation - right lower lung masses, pleural based; Abdominal tenderness; Cholelithiasis; Urinary tract infection, site not specified. Bed requested for Telemetry/MedSurg (Inpatient). Status is Inpatient Admission. Condition is Fair. Problem is new. Symptoms have improved.
[2020-12-17 10:28] LABS: Urine Blood 2+ (Negative); Urine Glucose Negative (Negative); Urine Protein Negative (Negative)
[2020-12-17 10:50] LABS: Urine Bacteria <20 /HPF (<20)
[2020-12-17] MEDS ORDERED: Levofloxacin500mg IV 500 MG/100 ML BAG IV ONE (11:37)
--- NOTE | 2020-12-17 11:41 | RAD REPORT ---
EXAM DESCRIPTION: US - Abdomen Exam Limited - 12/17/2020 10:35 am CLINICAL HISTORY: ABD PAIN COMPARISON: No comparisons FINDINGS: The gallbladder demonstrates small gallstones. No pericholecystic fluid or gallbladder wal l thickening. The common bile duct is normal measuring 4 mm. The liver demonstrates no findings of intrahepatic biliary dilatation. IMPRESSION: Cholelithiasis.
--- NOTE | 2020-12-17 11:42 | RAD REPORT ---
EXAM DESCRIPTION: RAD - Chest Single View - 12/17/2020 9:57 am CLINICAL HISTORY: Cough;COPD Chest pain. COMPARISON: Chest Single View dated 06/22/2019; Chest Single View dated 06/16/2017; Chest Single View dated 06/15/2017; Chest Single View dated 06/14/2017 FINDINGS: Portable technique limits examination quality. Mild emphysematous changes are present throughout the lungs. Rounded mass lesion is seen in right low er hemithorax. The heart is mildly prominent with a tortuous thoracic aorta. Hardware is present prox imal left humerus.
[2020-12-17] MEDS ORDERED: TRAMADOL 37.5mg/APAP 325mg PER TAB ONE (12:48)
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
[2020-12-17 15:32] VITALS: BMI 31.9
[2020-12-17] MEDS ORDERED: ONDANSETRON 4 MG/2 ML VIAL IV PRN (15:56)
[2020-12-17] MEDS ORDERED: ACETAMINOPHEN 500 MG TAB PO PRN (15:56)
[2020-12-17] MEDS: IPRATROPIUM BROM 0.5MG/2.5ML NEB SCH ×2 (15:56→19:50)
[2020-12-17] MEDS: ALBUTEROL 2.5 MG/3 ML NEB SOL NEB SCH ×2 (15:56→19:50)
[2020-12-17] MEDS: HYDROCODONE/APAP 5/325 MG TAB PO PRN ×2 (16:18→23:01)
[2020-12-17] MEDS: METHYLPREDNISOLONE 40 MG INJ IV SCH (17:41)
[2020-12-17 18:44] LABS: Urine Appearance CLEAR (Clear); Urine Bilirubin NEGATIVE (Negative); Urine Blood 2+ (Negative); Urine Color YELLOW (Yellow); Urine Glucose 2+ (Negative); Urine Protein NEGATIVE (Negative); Urine Specific Gravity >=1.030 (1.005-1.030); Urine Urobilinogen 0.2 mg/dL (0.2-1.0)
[2020-12-17 19:01] LABS: Urine Microscopic Reflex ORDER UMIC
[2020-12-17 19:45] LABS: Urine Bacteria <20 /HPF (<20)
[2020-12-18] MEDS: METHYLPREDNISOLONE 40 MG INJ IV SCH ×5 (00:52→23:16)
[2020-12-18] MEDS: ALBUTEROL 2.5 MG/3 ML NEB SOL NEB SCH ×4 (01:25→19:30)
[2020-12-18] MEDS: IPRATROPIUM BROM 0.5MG/2.5ML NEB SCH ×4 (01:25→19:30)
[2020-12-18] MEDS: MORPHINE 2 MG/ML SYR IV PRN ×3 (01:52→23:15)
[2020-12-18] MEDS: HYDROCODONE/APAP 5/325 MG TAB PO PRN ×2 (05:09→10:12)
[2020-12-18 05:53] LABS: Absolute Lymphocytes (CBC) 0.3 K/uL (0.7-4.9); Basophils % 0.2 % (0-1.3); Hematocrit 39.4 % (36.0-45.0); Lymphocytes % 2.9 % (15.3-44.8); MPV 6.7 fL (7.6-11.3)
[2020-12-18 06:16] LABS: Magnesium 2.4 mg/dL (1.8-2.4); Phosphorus 2.7 mg/dL (2.5-4.9); Potassium 4.2 mmol/L (3.5-5.1); Thyroid Stimulating Hormone 0.366 uIU/mL (0.360-3.740)
[2020-12-18] MEDS: Levofloxacin 750mg IV 750 MG/150 ML BAG IV SCH (08:00)
[2020-12-18 08:31] LABS: Blood Morphology Comment NOT SEEN (NOT SEEN); Platelet Estimate ADEQ
[2020-12-18] MEDS: ENOXAPARIN 40 MG/0.4 ML SQ SCH (08:42)
[2020-12-18] MEDS ORDERED: HYDROCODONE/APAP 5/325 MG TAB PO PRN (10:16)
--- NOTE | 2020-12-18 14:12 | P.PN ---
Subjective Date of Service: 12/18/20 Chief Complaint: Pleuritic chest pain Patient complaining of pleuritic chest pain and requiring pain medication almost every 4 hrs. She stated the pain medications last only 2-3 hrs. She mentioned the steroid is also helping her pain. Physical Examination - Vital Signs Temperature: 97.1 F Blood Pressure: 125/70 Pulse: 108 Respirations: 20 Pulse Ox (%): 98 - Physical Exam General: Alert, In no apparent distress, Oriented x3 Neck: Supple, JVD not distended Respiratory: Clear to auscultation bilaterally, Normal air movement Cardiovascular: No edema, Normal pulses, Normal S1 S2, Other (Tachycardia) Gastrointestinal: Soft and benign, Non-distended, No tenderness Musculoskeletal: No swelling Integumentary: No rashes Neurological: Normal strength at 5/5 x4 extr Assessment And Plan - Current Problems (Diagnosis) (1) Pleural mass Current Visit: Yes Status: Acute (2) UTI (urinary tract infection) Current Visit: Yes Status: Acute (3) Obesity Onset Date: 06/14/17 Current Visit: No Status: Chronic Qualifiers: Obesity type: due to excess calories Body mass index: BMI 33.0-33.9 (4) COPD exacerbation Onset Date: 06/14/17 Current Visit: No Status: Resolved (5) SIRS (systemic inflammatory response syndrome) Current Visit: Yes Status: Acute - Plan Treat COPD exacerbation with scheduled bronchodilators, steroid and antibiotics. Continue pain management with IV morphine and [place]. Continue IV Levaquin for UTI. Urine culture is showing mixed growth Incentive spirometry. Her policy writer is Dr. Delarosa. Patient will be discharged tomorrow morning to follow up with Dr. Delarosa in the office for arrangement for tissue biopsy of the pleural mass.
[2020-12-18] MEDS ORDERED: IBUPROFEN 400 MG TAB PO PRN (14:14)
[2020-12-18] MEDS: HYDROCODONE/APAP 10/325 TAB PO PRN ×2 (14:27→19:28)
[2020-12-19] MEDS: IPRATROPIUM BROM 0.5MG/2.5ML NEB SCH ×4 (02:20→19:45)
[2020-12-19] MEDS: ALBUTEROL 2.5 MG/3 ML NEB SOL NEB SCH ×4 (02:20→19:45)
[2020-12-19] MEDS: HYDROCODONE/APAP 10/325 TAB PO PRN ×5 (02:26→23:12)
[2020-12-19] MEDS: MORPHINE 2 MG/ML SYR IV PRN ×4 (05:34→21:23)
[2020-12-19] MEDS: METHYLPREDNISOLONE 40 MG INJ IV SCH (05:35)
[2020-12-19] MEDS: Levofloxacin 750mg IV 750 MG/150 ML BAG IV SCH (08:16)
[2020-12-19] MEDS: ENOXAPARIN 40 MG/0.4 ML SQ SCH ×2 (08:16→08:26)
[2020-12-19] MEDS ORDERED: FENTANYL 25 MCG/PATCH TD SCH (09:00)
[2020-12-19] MEDS: predniSONE 20 MG TAB PO SCH ×2 (09:44→21:23)
--- NOTE | 2020-12-19 10:52 | RAD REPORT ---
EXAM DESCRIPTION: CT - Head Brain W/Wo Con - 12/19/2020 10:38 am CLINICAL HISTORY: Lung neoplasm COMPARISON: None. TECHNIQUE: Computed axial tomography of the head was obtained. Unenhanced and enhanced images obtain ed. 50 cc Isovue-[address] scans are performed using dose optimization technique as appropriate and may include automated exposure control or mA/KV adjustment according to patient size. FINDINGS: An intracranial bleed is not seen . The ventricles are normal in caliber. No extra-axial fluid collection is noted. Small low-density areas within cerebrum bilaterally probably areas ischemia or old infarct. No abnormal enhancement seen Fluid within the sinuses/ mastoids is not seen. IMPRESSION: No evidence metastatic disease to the brain
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
--- NOTE | 2020-12-19 15:36 | P.PN ---
Subjective Date of Service: 12/19/20 Chief Complaint: Pleuritic chest pain Patient reports severe pain in between the p.r.n. doses. She is seen by Dr. Delarosa, had a CT head done today with does not show any metastatic disease. Physical Examination - Vital Signs Temperature: 97.8 F Blood Pressure: 126/76 Pulse: 116 Respirations: 20 Pulse Ox (%): 95 - Physical Exam General: Alert, In no apparent distress, Oriented x3 Neck: JVD not distended Respiratory: Clear to auscultation bilaterally, Diminished Cardiovascular: Normal S1 S2, Other (Tachycardic) Gastrointestinal: Normal bowel sounds, Soft and benign, Non-distended, No tenderness Musculoskeletal: No swelling Integumentary: No rashes Neurological: Normal speech, Normal strength at 5/5 x4 extr - Studies Microbiology Data (last 24 hrs): 12/17/20 10:26 Clean Catch Urine Fries Count - Final <10,000 CFU/ML. 12/17/20 10:26 Clean Catch Urine - Final MIXED ASHLEY. Assessment And Plan - Current Problems (Diagnosis) (1) Pleural mass Current Visit: Yes Status: Acute (2) UTI (urinary tract infection) Current Visit: Yes Status: Acute (3) Obesity Onset Date: 06/14/17 Current Visit: No Status: Chronic Qualifiers: Obesity type: due to excess calories Body mass index: BMI 33.0-33.9 (4) COPD exacerbation Onset Date: 06/14/17 Current Visit: No Status: Resolved (5) SIRS (systemic inflammatory response syndrome) Current Visit: Yes Status: Acute - Plan Continue scheduled bronchodilators, steroid and antibiotics. Patient placed on fentanyl patch. IV morphine and oral oxycodone for breakthrough pain. Urine culture is showing mixed growth. Antibiotics discontinued Incentive spirometry as tolerated. Dr. Delarosa's input appreciated. CT guided biopsy of the pleural mass recommended and will be done on Saturday12/21/20.
[2020-12-20] MEDS: MORPHINE 2 MG/ML SYR IV PRN ×6 (01:20→21:21)
[2020-12-20] MEDS: ALBUTEROL 2.5 MG/3 ML NEB SOL NEB SCH ×4 (01:20→20:18)
[2020-12-20] MEDS: IPRATROPIUM BROM 0.5MG/2.5ML NEB SCH ×4 (01:20→20:18)
[2020-12-20] MEDS: HYDROCODONE/APAP 10/325 TAB PO PRN ×5 (03:18→19:10)
[2020-12-20] MEDS: predniSONE 20 MG TAB PO SCH (07:17)
[2020-12-20] MEDS: DOCUSATE NA 100 MG CAP PO SCH ×2 (07:45→21:20)
--- NOTE | 2020-12-20 12:31 | P.PN ---
Subjective Date of Service: 12/20/20 Chief Complaint: Pleuritic chest pain Still complaining of chest pain slightly better still requiring scheduled doses of medication Review of Systems General: Weakness Cardiovascular: Chest Pain Physical Examination - Vital Signs Temperature: 97.3 F Blood Pressure: 154/78 Pulse: 99 Respirations: 17 Pulse Ox (%): 94 - Physical Exam General: Alert, Oriented x3, Mild distress Respiratory: Clear to auscultation bilaterally, Diminished Cardiovascular: No edema, Regular rate/rhythm Assessment & Plan - Problems (Diagnosis) (1) Right lower lobe lung mass Current Visit: Yes Status: Acute Plan: So far there is no evidence soft mets to the brain scheduled for needle biopsy tomorrow reduce dose of prednisone to 10 b.i.d. prognosis poor patient has severe terminal COPD she is definitely not a surgical candidate and not sure if be able tolerate chemo radiation
--- NOTE | 2020-12-20 15:48 | P.PN ---
Subjective Date of Service: 12/20/20 Chief Complaint: Pleuritic chest pain Subjective: Other (feels pain has slightly improved, but needing frequent pain medication. Short of breath this morning after just taking a few steps to use bathroom.) Review of Systems 10-point ROS is otherwise unremarkable Physical Examination - Vital Signs Temperature: 97.3 F Blood Pressure: 154/78 Pulse: 99 Respirations: 18 Pulse Ox (%): 94 Assessment & Plan Physician Review Additional Text: Physical Exam General: mild distress, AAOx3 Respiratory: shallow respirations, tachypneic, on O2 Cardiovascular: Normal S1 S2, tachycardic, no edema Gastrointestinal: Soft, nontender, nondistended Musculoskeletal: No joint swelling Integumentary: No rashes Problem list Right lower lobe lung mass Obesity COPD exacerbation, acute on end-stage (on chronic home O2) -continue steroids, bronchodilators, antibiotics -pulm consulted -continue fentanyl patch, and PRN pain medication -urine culture grew mixed growth, Abx dc'd -scheduled for CT guided biopsy tomorrow - 12/21 -requiring oxygen, wean as tolerated Dispo: anticipate dc home in ~2 days Time Spent Managing Pts Care (In Minutes): 35
[2020-12-20] MEDS: predniSONE 10 MG TAB PO SCH (21:20)
[2020-12-21] MEDS: HYDROCODONE/APAP 10/325 TAB PO PRN ×4 (01:10→15:43)
[2020-12-21] MEDS: IPRATROPIUM BROM 0.5MG/2.5ML NEB SCH ×3 (02:15→13:37)
[2020-12-21] MEDS: ALBUTEROL 2.5 MG/3 ML NEB SOL NEB SCH ×3 (02:15→13:37)
[2020-12-21] MEDS: MORPHINE 2 MG/ML SYR IV PRN ×2 (04:18→08:59)
[2020-12-21 04:31] LABS: Absolute Lymphocytes (CBC) 0.9 K/uL (0.7-4.9); Basophils % 0.4 % (0-1.3); Hematocrit 37.1 % (36.0-45.0); Lymphocytes % 6.7 % (15.3-44.8); MPV 6.6 fL (7.6-11.3); RBC Red Blood Cell Count 4.22 M/uL (3.86-4.86)
[2020-12-21 04:39] LABS: BUN Blood Urea Nitrogen 20 mg/dL (7-18); Bicarbonate 34 mmol/L (21-32); Glucose Level 148 mg/dL (74-106); Potassium 4.2 mmol/L (3.5-5.1); Sodium Level 135 mmol/L (136-145)
[2020-12-21] MEDS ORDERED: CYCLOBENZAPRINE 10 MG TAB PO PRN (08:27)
[2020-12-21] MEDS ORDERED: NA CHLORIDE 0.9% 1,000 ML ONE (08:46)
[2020-12-21 09:55] VITALS: O2SAT 95
[2020-12-21] MEDS ORDERED: FENTANYL CITR 100 MCG/2 ML ONE (10:11)
[2020-12-21] MEDS ORDERED: MIDAZOLAM HCL 2 MG/2 ML INJ ONE (10:12)
[2020-12-21] MEDS ORDERED: NA CHLORIDE 0.9% 500 ML ONE (10:25)
[2020-12-21] MEDS: predniSONE 10 MG TAB PO SCH (15:10)
[2020-12-21] MEDS: DOCUSATE NA 100 MG CAP PO SCH (15:10)
--- NOTE | 2020-12-21 15:55 | RAD REPORT ---
EXAM DESCRIPTION: CT - Lung Biopsy Perc w/CT - 12/21/2020 11:51 am CLINICAL HISTORY: RLL lobe. Lung mass COMPARISON: Chest Abdomen Pelvis W Cont dated 12/17/2020 TECHNIQUE: Patient presents for image guided biopsy of a previously detailed pleural based or pleura l abutting mass in the posterolateral lower right chest. The procedure, risks and alternatives were discussed with the patient in detail. After answering all questions both oral and written consent were obtained. Patient had no contraindicated allergy or medi cation history. IV access was already in place. Patient is on continuous O2 nasal cannula. Physiologi c monitors were placed. Time-out procedure was performed. Patient was placed in an oblique supine position on the CT table. Preliminary imaging was obtained an d show the mass to be accessible with the patient in the oblique position. The patient was pre-medicated with Versed at 1.0 milligrams IV and fentanyl 100 micrograms IV. Access site was selected from the preliminary imaging. Skin was prepped and draped in the usual steri le fashion. Skin and deeper tissues were anesthetized with 1% lidocaine. Utilizing CT guidance a 17 gauge introducer needle was advanced and placed at the pleural margin of t he mass. CT guidance confirmed placement of the needle tip into the pleural margin of the mass. An 18 gauge biopsy needle was advanced through the introducer. A total of 4 2 centimeter long core biopsie s were obtained through the mass. Slightly different regions of the mass were biopsied each time. CT imaging shows evidence of necrosis within the mass. All biopsy material was given to pathology for hi stologic assessment. At the conclusion of the procedure the introducer needle was removed. Hemostasis was obtained at the skin site. Post procedure imaging showed no hematoma in the superficial soft tissues and there was no pneumothorax present. Patient tolerated the procedure well without complication. Vital signs were stable throughout the pro cedure. Patient was transferred back to the floor for continued care. Conscious sedation time was 40 minutes. IMPRESSION: CT-guided biopsy was performed of the posterior lower right chest mass. All obtained mat erial was given to pathology for histologic assessment. There were no immediate complications. The patient was transferred back to the floor for continued ca re.
[2020-12-21 16:56] VITALS: BP 142/65; TEMP 98.2
--- NOTE | 2020-12-21 19:33 | P.DS ---
Admission Date: 12/18/20 Discharge Date: 12/21/20 Disposition: ROUTINE DISCHARGE Discharge Condition: FAIR Reason for Admission: Pleuritic chest pain Consultations: Pulm - Dr. Delarosa Procedures: CXR (12/17): Mild emphysematous changes are present throughout the lungs. Rounded mass lesion is seen in right lower hemithorax. The heart is mildly prominent with a tortuous thoracic aorta. Hardware is present proximal left humerus. U/S Abd (12/17): FINDINGS: The gallbladder demonstrates small gallstones. No pericholecystic fluid or gallbladder wall thickening. The common bile duct is normal measuring 4 mm. The liver demonstrates no findings of intrahepatic biliary dilatation. IMPRESSION: Cholelithiasis. CT Chest/Abd/Pelvis (12/17): FINDINGS: The lungs are emphysematous.Irregular mass like lesions are present along right inferior pleural surface the largest 5.1 x 3.8 cm.No intrathoracic adenopathy. Mild fatty liver is present. 3 cm benign-appearing cyst is seen likely emanating from the left lobe liver. No intra or extrahepatic biliary tree dilatation. Cholelithiasis with gallbladder distention seen. The spleen adrenal glands and kidneys are within normal limits. No pancreatic abnormality seen. No bowel obstruction, free air, free fluid or abscess. The appendix is not identified as a discrete structure, however, no secondary findings of appendicitis are identified. Scattered diverticulosis coli of the sigmoid colon without diverticulitis. No pathologic lymphadenopathy in the abdomen or pelvis. No worrisome osseous finding. IMPRESSION: Cholelithiasis with gallbladder distention. Masslike lesions, largest measuring 5 cm, along the inferior right pleural space likely related to neoplasia or metastatic disease. CT Head (12/19): No evidence metastatic disease to the brain CT Lung Biopsy (12/21): CT-guided biopsy was performed of the posterior lower right chest mass. All obtained material was given to pathology for histologic assessment. There were no immediate complications. Problem List: Right lower lobe lung mass Obesity COPD exacerbation, acute on end-stage (on chronic home O2) Brief History of Present Illness: 80-year-old woman with a history of advanced COPD, chronic respiratory failure on home oxygen, presented to the emergency department with a complaint of Right flank pleuritic pain of about 2-3 weeks duration. Patient also reported progressive worsening shortness of breath and decreased functional status over the past [address] chest abdomen and pelvis done in the emergency department demonstrated mass like lesions, largest 5 cm right pleural based mass, cholelithiasis. Patient tachycardic and tachypneic in the ED. She has mild leukocytosis. UA showing some evidence of UTI. Patient admitted for further management. Hospital Course: Patient required high doses of pain medication to achieve some level of relief of her pain. Pulmonology was consulted and patient underwent CT guided biopsy of the pulmonary mass on 12/21. She was breathing comfortably on oxygen and pain was better managed. She was deemed stable for discharge and is to follow up at the cancer center in ~1 week. Discharged home with [place] 10s and Fentanyl patch. Follow up: Cancer center in ~1 week, will f/u on biopsy results Dr. Delarosa in ~1 week. PCP in 3-5 days. Vital Signs/Physical Exam: Physical Exam General: NAD, AAOx3 Respiratory: shallow respirations, on O2 Cardiovascular: Normal S1 S2, slight tachycardia 90s-100, no edema Gastrointestinal: Soft, nontender, nondistended Musculoskeletal: No joint swelling Integumentary: No rashes Temp Pulse Resp BP Pulse Ox 98.2 F 106 H 20 142/65 H 93 12/21/20 16:00 12/21/20 16:00 12/21/20 16:00 12/21/20 16:00 12/21/20 16:00 Laboratory Data at Discharge: WBC 13.80 K/uL (4.3-10.9) H D 12/21/20 04:06 Hgb 11.8 g/dL (12.0-15.0) L 12/21/20 04:06 Hct 37.1 % (36.0-45.0) 12/21/20 04:06 Plt Count 328 K/uL (152-406) 12/21/20 04:06 PT 10.9 SECONDS (9.5-12.5) 12/17/20 09:20 INR 0.95 12/17/20 09:20 Sodium 135 mmol/L (136-145) L 12/21/20 04:06 Potassium 4.2 mmol/L (3.5-5.1) 12/21/20 04:06 BUN 20 mg/dL (7-18) H 12/21/20 04:06 Creatinine 0.61 mg/dL (0.55-1.3) 12/21/20 04:06 Glucose 148 mg/dL (74-106) H 12/21/20 04:06 Phosphorus 2.7 mg/dL (2.5-4.9) 12/18/20 05:23 Magnesium 2.4 mg/dL (1.8-2.4) 12/18/20 05:23 Total Bilirubin 0.3 mg/dL (0.2-1.0) 12/17/20 09:20 AST 14 U/L (15-37) L 12/17/20 09:20 ALT 18 U/L (12-78) 12/17/20 09:20 Alkaline Phosphatase 88 U/L (45-117) 12/17/20 09:20 Lipase 100 U/L (73-393) 12/17/20 09:20 Home Medications: Tiotropium [Spiriva Handihaler*] 2 puff IH BID 06/07/13 Roflumilast [Daliresp*] 500 mcg PO DAILY #30 tablet 06/12/13 Albuterol Inhaler [Ventolin Inhaler*] 2 puff IH QID 06/13/17 Albuterol Inhaler [Ventolin Inhaler*] 2 puff IH Q6H PRN 12/17/20 Simvastatin 20 mg PO DAILY 12/17/20 predniSONE [Prednisone*] 10 mg PO DAILY 12/17/20 Hydrocodone 10/APAP 325 [[place] 10/325*] 1 tab PO Q6H PRN 10 Days #40 tab 12/21/20 fentaNYL [Duragesic] 1 each TD Q3D 30 Days #10 patch.td72 12/21/20 New Medications: fentaNYL [Duragesic] 1 each TD Q3D 30 Days #10 patch.td72 Hydrocodone 10/APAP 325 [[place] 10/325*] 1 tab PO Q6H PRN 10 Days #40 tab PRN Reason: Pain Scale 8-10 (Severe) Physician Discharge Instructions: You were found to have a new right lower lobe lung mass concerning for malignancy/cancer. You underwent CT guided biopsy on 12/21. You are discharged home with pain medication and to follow up with Heme/Oncology in ~ 1 week, follow up with Dr. Delarosa in 1-2 weeks. Follow up with your PCP in 3-5 days. Continue your other home medications as previously prescribed. Diet: AHA Activity: Ad brendon Followup: Phong Delarosa MD [ACTIVE - CAN ADMIT] - (settlement processor- call to schedule an appointment) Zayda Holman MD [OUTSIDE PHYSICIAN] - (Primary care physician- call to schedule an appointment ) Time spent managing pt's care (in minutes): 45
== END 2020-12-21 18:17 | disposition home or self-care (01) | DRG 181 ==
LOC: ER 08:32 → ERHOLD 13:02 → 4TH 14:53 → OBSVTOIN 12-18 14:42 → INTOOBSV 12-19 07:35 → OBSVTOIN 12-19 07:35
PROVIDERS: ADMIT Internal Medicine; ATTEND Internal Medicine
PROC: 0B9F3ZX Drainage of Right Lower Lung Lobe, Percutaneous Approach, Diagnostic (ICD-10-PCS; principal; 2020-12-21)
DX: C34.91 Malignant neoplasm of unspecified part of right bronchus or lung (principal); J44.1 Chronic obstructive pulmonary disease with (acute) exacerbation; J96.10 Chronic respiratory failure, unspecified whether with hypoxia or hypercapnia; N39.0 Urinary tract infection, site not specified; K80.20 Calculus of gallbladder without cholecystitis without obstruction; E66.9 Obesity, unspecified; Z68.31 Body mass index [BMI] 31.0-31.9, adult; Z88.2 Allergy status to sulfonamides; Z88.0 Allergy status to penicillin; Z91.013 Allergy to seafood; Z87.891 Personal history of nicotine dependence; Z99.81 Dependence on supplemental oxygen; Z94.7 Corneal transplant status; Z20.822 Contact with and (suspected) exposure to COVID-19
CPT/HCPCS: 32405; 36415; 71045; 71260; 74177; 76705; 77012; 80048; 80076; 81003; 81015; 82565; 83690; 83735; 83880; 84100; 84443; 84484; 85025; 85610; 87040; 87086; 87088; 88305; 93005; 94640; 94760; 96374; 96375; 99285; J1200; J1650; J2250; J2270; J2920; J2930; J3010; J7030; J7040; J7512; Q9967; U0003